=== PATIENT | male | born 1945 | race African-American/Black ===

== ENCOUNTER 2017-04-29 18:36 | Inpatient (IN) | payer BC, OTHER ==
[~2017-04-29] VITALS: Ht 182.9 cm; Wt 102.7 kg
[~2017-04-29 18:36] MED LIST: ARYTHROMYCIN; ASPI81CH43; ATEN-60; ATOR10TA; BENA10TA9; GABA-494; GLIM1TAB2; NITR0.4S31; PRO125RS; SITA50TA28; VENL75TA
[2017-04-29 19:40] LABS: Albumin 3.3 g/dL (3.4-5.0); BUN/Creatinine Ratio 20.6; Calcium 8.6 mg/dL (8.5-10.1); Potassium 4.8 mmol/L (3.5-5.1)
[2017-04-29 19:41] LABS: Basophils # (auto) 0 uL; Basophils % (auto) 0.7 % (0.0-2.0); Eosinophils # (auto) 0.1 uL; Eosinophils % (auto) 1.4 % (0.0-7.0); Hematocrit 45.9 % (41.0-53.0); Hemoglobin 15.1 g/dL (13.5-17.5); Lymphocytes # (auto) 1.7 uL; Lymphocytes % (auto) 27.5 % (10.0-50.0); Mean Corpuscular Hemoglobin 29.5 pg (28.0-32.0); Mean Corpuscular Volume 89.4 fL (80.0-100.0); Mean Platelet Volume 10.7 fL (6.9-10.8); Monocytes # (auto) 0.6 uL; Monocytes % (auto) 10.2 % (0.0-12.0); Neutrophils # (auto) 3.7 uL; Neutrophils % (auto) 60.2 % (37.0-80.0); Nucleated Red Blood Cells % 0.2 %; Red Cell Distribution Width 15.7 % (11.8-14.3); White Blood Cell 6.1 10^3/uL (4.4-10.8)
[2017-04-29 19:42] LABS: Lactic Acid w/Reflex 2.5 mmol/L (0.4-2.0)
[2017-04-29 19:43] LABS: Bilirubin, Total 0.3 mg/dL (0.2-1.0); Total Protein 7.1 g/dL (6.4-8.2)
[2017-04-29 19:48] LABS: B-Type Natriuretic Peptide 29.51 pg/mL (0-100)
[2017-04-29 19:54] LABS: Partial Thromboplastin Time 54.8 sec (22.64-33.71); Prothrombin Time 46.8 sec (9.37-12.3)
[2017-04-29] MEDS ORDERED: ONDANSETRON HCL 4 MG/2 ML VIAL IV ONE (20:15)
[2017-04-29] MEDS ORDERED: MORPHINE SULF INJ 2 MG/ML SYRINGE 1ML IV ONE (20:15)
[2017-04-29 20:17] LABS: REFLEX LACTIC ACID YES OR NO YES
[2017-04-29 20:29] LABS: Large Platelets FEW; Stomatocytes Few
[2017-04-29 20:30] LABS: Platelet Estimate Decrea
[2017-04-29 20:39] LABS: INR 4.23 (0.9-1.15)
[2017-04-29] MEDS ORDERED: IPRATROPIUM BROM 0.5 MG/2.5ML INH SOL NEB ONE (20:45)
[2017-04-29] MEDS ORDERED: ALBUTEROL SULF 2.5 MG/0.5ML(0.5%) NEB SOLN NEB ONE (20:45)
[2017-04-29 21:17] LABS: Temperature: 21.4 C (20.0-25.0)
[2017-04-29 21:20] LABS: Platelet Count (auto) 138 10^3/uL (140-450)
[2017-04-29] MEDS ORDERED: ACETAMINOPHEN 325 MG TAB PO ONE ×2 (23:26→23:30)
[2017-04-30] MEDS ORDERED: NITROGLYCERIN 0.4 MG SL TAB SL PRN (02:00)
[2017-04-30] MEDS ORDERED: MORPHINE SULF INJ 2 MG/ML SYRINGE 1ML IV PRN (02:00)
[2017-04-30] MEDS ORDERED: ACETAMINOPHEN 500 MG TAB PO PRN (04:15)
[2017-04-30] MEDS ORDERED: DEXTROSE (50%) 50ML SYRG IV PRN (04:15)
[2017-04-30] MEDS ORDERED: ONDANSETRON HCL 4 MG/2 ML VIAL IV PRN (04:15)
[2017-04-30] MEDS: ACCU-CHEK COMFORT CURVE STRIP VI SCH ×4 (06:38→22:00)
[2017-04-30] MEDS: InsuLIN REG 1unit/0.01ml Soln (100units/ml) SC SCH ×4 (06:56→22:00)
[2017-04-30 07:40] LABS: Basophils # (auto) 0.1 uL; Basophils % (auto) 0.8 % (0.0-2.0); Eosinophils # (auto) 0.1 uL; Eosinophils % (auto) 1.5 % (0.0-7.0); Hematocrit 42.4 % (41.0-53.0); Lymphocytes # (auto) 1.9 uL; Lymphocytes % (auto) 26.6 % (10.0-50.0); Mean Corpuscular Hemoglobin 29.4 pg (28.0-32.0); Mean Corpuscular Volume 89.2 fL (80.0-100.0); Mean Platelet Volume 11.3 fL (6.9-10.8); Monocytes # (auto) 0.7 uL; Neutrophils # (auto) 4.3 uL; Neutrophils % (auto) 61.1 % (37.0-80.0); Nucleated Red Blood Cells % 0.3 %; Platelet Count (auto) 139 10^3/uL (140-450); Red Cell Distribution Width 15.7 % (11.8-14.3); White Blood Cell 7.1 10^3/uL (4.4-10.8)
[2017-04-30 07:57] LABS: BUN/Creatinine Ratio 23.9; Calcium 8.2 mg/dL (8.5-10.1)
[2017-04-30 08:04] LABS: Potassium 5.7 mmol/L (3.5-5.1)
[2017-04-30] MEDS ORDERED: ALBUTEROL SULF 2.5 MG/0.5ML(0.5%) NEB SOLN NEB STA (08:16)
[2017-04-30] MEDS ORDERED: CALCIUM GLUC 4.65meq/50ml D5AE 50 ML IV ONE (08:30)
[2017-04-30] MEDS ORDERED: InsuLIN REG 1unit/0.01ml Soln (100units/ml) IV ONE (08:30)
[2017-04-30] MEDS ORDERED: SODIUM BICARBONATE 8.4% INJ 50ML SYRINGE IV ONE (08:30)
[2017-04-30] MEDS ORDERED: PIPERACILLIN-TAZOB 3.375GM 50 ML IV ONE (08:30)
[2017-04-30] MEDS ORDERED: SODIUM POLYSTYRENE SULF 15GM/60ML SUSP PO ONE (08:30)
[2017-04-30] MEDS ORDERED: DEXTROSE (50%) 50ML SYRG IV ONE (08:30)
[2017-04-30] MEDS ORDERED: VANCOMYCIN 1GM/250ML 250 ML IV ONE (08:45)
[2017-04-30] MEDS ORDERED: ETOMIDATE (2MG/ML) 20ML VIAL IV ONE ×2 (09:38→10:15)
[2017-04-30] MEDS ORDERED: MIDAZOLAM DRIP 100 mg/100mL NS 100 ML IV ONE (09:48)
[2017-04-30] MEDS: MIDAZOLAM DRIP 100 mg/100mL NS 100 ML IV SCH ×2 (09:56→20:16)
[2017-04-30] MEDS: VENLAFAXINE HCL 37.5MG TABLET PO SCH ×2 (10:00→22:00)
[2017-04-30] MEDS ORDERED: diphenhdrAMINE HCL 50 MG/1 ML VL ONE (10:02)
[2017-04-30] MEDS ORDERED: PROPOFOL 100 ML IV ONE (10:02)
[2017-04-30] MEDS: PROPOFOL 100 ML IV SCH (10:15)
[2017-04-30] MEDS ORDERED: PROPOFOL 10 MG/ML 20 ML IV SCH (10:15)
[2017-04-30] MEDS ORDERED: diphenhdrAMINE HCL 50 MG/1 ML VL IV ONE (10:15)
[2017-04-30 11:41] LABS: Base Excess 1.9 mmol/L (-2.0-2.0); Blood 02Sat 96.9 % (96-100); Blood COHb 0.1 % (0.5-1.5); Blood MetHb 0.3 % (0.0-1.5); HCO3 28.9 mmol/L (22-26.0); HHb 3.1 % (0.0-5.0); MODE VENT - A/C; O2Hb 96.5 % (94.0-97.0); PCO2 54.4 mmHg (35.0-45.0); PCO2(T) 54.4 mmHg (35.0-45.0); PIP 26; Room 1011-ERT; Sample Type Arterial; pH 7.343 (7.350-7.450)
[2017-04-30] MEDS ORDERED: WARF5TAB71 PO (15:11)
[2017-04-30] MEDS ORDERED: TEMA30CA PO (15:16)
[2017-04-30] MEDS ORDERED: CARV12.544 PO (15:16)
[2017-04-30] MEDS ORDERED: AMIO200T33 PO (15:16)
[2017-04-30] MEDS ORDERED: GABA-339 PO (15:16)
[2017-04-30] MEDS ORDERED: FURO40TA4 PO (15:16)
[2017-04-30] MEDS ORDERED: BEN10T PO (15:16)
[2017-04-30] MEDS ORDERED: VENL37.588 PO (15:16)
[2017-04-30] MEDS ORDERED: PANTOPRAZOLE 40 MG/10 ML VIAL IV ONE (17:45)
[2017-04-30] MEDS ORDERED: LEVOFLOXACIN 500MG 100 ML IV ONE (17:45)
[2017-04-30 19:02] VITALS: BP 114/72
[2017-04-30 20:12] VITALS: BP 110/70
[2017-04-30] MEDS: PIPERACILLIN-TAZO 4.5GM 50 ML IV SCH (22:00)
[2017-04-30] MEDS: ATORVASTATIN 20 MG TAB PO SCH (22:00)
[2017-04-30 22:37] VITALS: BP 128/64
[2017-04-30 23:13] VITALS: BP 128/64
[2017-05-01] VITALS (13 sets, daily range): BP systolic 89–133; BP diastolic 58–76
[2017-05-01] MEDS: PIPERACILLIN-TAZO 4.5GM 50 ML IV SCH ×3 (06:08→22:13)
[2017-05-01 06:28] LABS: Basophils # (auto) 0 uL; Basophils % (auto) 0.2 % (0.0-2.0); Eosinophils # (auto) 0 uL; Eosinophils % (auto) 0.1 % (0.0-7.0); Hematocrit 42.4 % (41.0-53.0); Hemoglobin 14.2 g/dL (13.5-17.5); Lymphocytes # (auto) 0.8 uL; Lymphocytes % (auto) 8.6 % (10.0-50.0); Mean Corpuscular Hemoglobin 29.6 pg (28.0-32.0); Mean Corpuscular Hgb Conc. 33.5 g/dL (32.0-36.0); Mean Corpuscular Volume 88.5 fL (80.0-100.0); Mean Platelet Volume 11.4 fL (6.9-10.8); Monocytes # (auto) 0.9 uL; Monocytes % (auto) 10.1 % (0.0-12.0); Neutrophils # (auto) 7.5 uL; Nucleated Red Blood Cells % 0.2 %; Platelet Count (auto) 116 10^3/uL (140-450); White Blood Cell 9.2 10^3/uL (4.4-10.8)
[2017-05-01 06:47] LABS: Albumin 2.9 g/dL (3.4-5.0); Calcium 8.3 mg/dL (8.5-10.1); Potassium 5.3 mmol/L (3.5-5.1)
[2017-05-01 06:49] LABS: BUN/Creatinine Ratio 21.4
[2017-05-01] MEDS: InsuLIN REG 1unit/0.01ml Soln (100units/ml) SC SCH ×4 (06:49→22:31)
[2017-05-01] MEDS: ACCU-CHEK COMFORT CURVE STRIP VI SCH ×4 (06:49→22:14)
[2017-05-01 06:52] LABS: Bilirubin, Total 0.7 mg/dL (0.2-1.0); Total Protein 6.9 g/dL (6.4-8.2)
[2017-05-01 07:23] LABS: Allen Test Modified; Base Excess 0.3 mmol/L (-2.0-2.0); Blood 02Sat 95.1 % (96-100); Blood COHb 0.1 % (0.5-1.5); Blood MetHb 0.3 % (0.0-1.5); HCO3 25.3 mmol/L (22-26.0); HHb 4.9 % (0.0-5.0); MODE VENT - A/C; O2Hb 94.7 % (94.0-97.0); PCO2 42.1 mmHg (35.0-45.0); PCO2(T) 42.1 mmHg (35.0-45.0); Room 1011-ERT; Sample Type Arterial; pH 7.397 (7.350-7.450)
[2017-05-01] MEDS: LEVOFLOXACIN 500MG 100 ML IV SCH (09:41)
[2017-05-01] MEDS: VENLAFAXINE HCL 37.5MG TABLET PO SCH ×2 (09:41→21:59)
[2017-05-01] MEDS ORDERED: PANTOPRAZOLE 40 MG/10 ML VIAL IV SCH (10:00)
[2017-05-01] MEDS: SOD CHL 0.45% 1,000 ML IV SCH ×2 (12:22→22:13)
[2017-05-01 13:52] LABS: Urine Bilirubin Negative (Negative); Urine Blood 3+ /uL (Negative); Urine Color PINK (Yellow); Urine Glucose 2+ mg/dL (Normal); Urine Ketone Negative (Negative); Urine Mucus FEW (None Seen); Urine Nitrite Negative (Negative); Urine RBC 115 /hpf (0 - 3); Urine Squamous Epithelial Cell FEW /hpf (<5); Urine Urobilinogen Normal (Negative)
[2017-05-01] MEDS: PROPOFOL 100 ML IV SCH (15:00)
[2017-05-01] MEDS: MIDAZOLAM DRIP 100 mg/100mL NS 100 ML IV SCH (15:00)
[2017-05-01] MEDS: ATORVASTATIN 20 MG TAB PO SCH (22:00)
[2017-05-01 22:35] LABS: INR 3.46 (0.9-1.15); Prothrombin Time 38.2 sec (9.37-12.3)
[2017-05-02] VITALS (11 sets, daily range): BP systolic 113–143; BP diastolic 64–82
[2017-05-02 04:57] LABS: Albumin 2.5 g/dL (3.4-5.0); BUN/Creatinine Ratio 24.3; Bilirubin, Total 0.6 mg/dL (0.2-1.0); Calcium 7.9 mg/dL (8.5-10.1); Potassium 4.4 mmol/L (3.5-5.1); Total Protein 6.2 g/dL (6.4-8.2)
[2017-05-02 06:08] LABS: Allen Test Modified; Base Excess 0.7 mmol/L (-2.0-2.0); Blood 02Sat 91.8 % (96-100); Blood COHb 0.2 % (0.5-1.5); Blood MetHb 0.3 % (0.0-1.5); HCO3 24.1 mmol/L (22-26.0); HHb 8.2 % (0.0-5.0); MODE VENT - A/C; O2Hb 91.3 % (94.0-97.0); PO2 62.1 mmHg (80.0-100.0); PO2(T) 62.1 mmHg (80.0-100.0); Room 1011-ERT; Sample Type Arterial; pH 7.456 (7.350-7.450)
[2017-05-02] MEDS: PIPERACILLIN-TAZO 4.5GM 50 ML IV SCH ×3 (06:18→22:04)
[2017-05-02] MEDS: ACCU-CHEK COMFORT CURVE STRIP VI SCH ×4 (06:18→22:12)
[2017-05-02] MEDS: InsuLIN REG 1unit/0.01ml Soln (100units/ml) SC SCH ×4 (06:46→22:22)
[2017-05-02] MEDS: SOD CHL 0.45% 1,000 ML IV SCH ×2 (07:51→18:25)
[2017-05-02] MEDS: VENLAFAXINE HCL 37.5MG TABLET PO SCH ×2 (10:00→22:00)
[2017-05-02] MEDS: LEVOFLOXACIN 500MG 100 ML IV SCH (10:23)
[2017-05-02] MEDS: MIDAZOLAM DRIP 100 mg/100mL NS 100 ML IV SCH (11:23)
[2017-05-02] MEDS: FAMOTIDINE (10MG/ML) 2ML VL IV SCH (11:27)
[2017-05-02] MEDS: PROPOFOL 100 ML IV SCH (11:30)
[2017-05-02] MEDS: MIDAZOLAM DRIP 50 mg/50mL 50 ML IV SCH (13:45)
[2017-05-02] MEDS ORDERED: CLOP75TA28 PO (14:11)
[2017-05-02] MEDS ORDERED: INSU1.2I SC (14:11)
[2017-05-02] MEDS ORDERED: INSLISPI SC (14:11)
[2017-05-02] MEDS ORDERED: ALPR0.25 PO (14:11)
[2017-05-02] MEDS: ATORVASTATIN 20 MG TAB PO SCH (22:00)
[2017-05-03] VITALS (12 sets, daily range): BP systolic 116–172; BP diastolic 65–119
[2017-05-03] MEDS: SOD CHL 0.45% 1,000 ML IV SCH ×3 (04:00→23:47)
[2017-05-03 07:21] LABS: Albumin 2.3 g/dL (3.4-5.0); BUN/Creatinine Ratio 27.4; Bilirubin, Total 0.6 mg/dL (0.2-1.0); Calcium 7.8 mg/dL (8.5-10.1); Total Protein 6.3 g/dL (6.4-8.2)
[2017-05-03 07:36] LABS: Allen Test Modified; Base Excess 1.1 mmol/L (-2.0-2.0); Blood 02Sat 91.4 % (96-100); Blood COHb 0.1 % (0.5-1.5); Blood MetHb 0.2 % (0.0-1.5); HCO3 24.7 mmol/L (22-26.0); HHb 8.6 % (0.0-5.0); MODE VENT - A/C; O2Hb 91.1 % (94.0-97.0); PCO2 36.2 mmHg (35.0-45.0); PCO2(T) 36.2 mmHg (35.0-45.0); PO2 60.6 mmHg (80.0-100.0); PO2(T) 60.6 mmHg (80.0-100.0); Room 1011-ERT; Sample Type Arterial; pH 7.452 (7.350-7.450)
[2017-05-03] MEDS: ACCU-CHEK COMFORT CURVE STRIP VI SCH ×4 (07:46→22:07)
[2017-05-03] MEDS: InsuLIN REG 1unit/0.01ml Soln (100units/ml) SC SCH ×4 (07:52→22:07)
[2017-05-03] MEDS: PIPERACILLIN-TAZO 4.5GM 50 ML IV SCH ×3 (08:08→22:07)
[2017-05-03] MEDS: FAMOTIDINE (10MG/ML) 2ML VL IV SCH (10:00)
[2017-05-03] MEDS: PROPOFOL 100 ML IV SCH ×2 (11:09→13:18)
[2017-05-03] MEDS: VENLAFAXINE HCL 37.5MG TABLET PO SCH ×2 (11:10→22:07)
[2017-05-03] MEDS: LEVOFLOXACIN 500MG 100 ML IV SCH (11:25)
[2017-05-03] MEDS: MIDAZOLAM DRIP 50 mg/50mL 50 ML IV SCH (12:08)
[2017-05-03] MEDS: ATORVASTATIN 20 MG TAB PO SCH (22:07)
[2017-05-04] VITALS (88 sets, daily range): BP systolic 105–178; BP diastolic 55–95
[2017-05-04] MEDS: PIPERACILLIN-TAZO 4.5GM 50 ML IV SCH ×3 (06:00→21:52)
[2017-05-04] MEDS: ACCU-CHEK COMFORT CURVE STRIP VI SCH ×4 (07:00→22:26)
[2017-05-04] MEDS: InsuLIN REG 1unit/0.01ml Soln (100units/ml) SC SCH ×4 (07:01→22:27)
[2017-05-04 07:21] LABS: Base Excess -3.1 mmol/L (-2.0-2.0); Blood 02Sat 92.9 % (96-100); Blood COHb 0.5 % (0.5-1.5); Blood MetHb 0.3 % (0.0-1.5); HCO3 20.2 mmol/L (22-26.0); MODE VENT - A/C; O2Hb 92.2 % (94.0-97.0); PCO2 31.5 mmHg (35.0-45.0); PCO2(T) 31.5 mmHg (35.0-45.0); PO2 66.3 mmHg (80.0-100.0); PO2(T) 66.3 mmHg (80.0-100.0); Sample Type Arterial; pH 7.425 (7.350-7.450)
[2017-05-04] MEDS: LEVOFLOXACIN 500MG 100 ML IV SCH (10:53)
[2017-05-04] MEDS: FAMOTIDINE (10MG/ML) 2ML VL IV SCH (10:54)
[2017-05-04] MEDS: PROPOFOL 100 ML IV SCH ×2 (10:54→16:44)
[2017-05-04] MEDS: SOD CHL 0.45% 1,000 ML IV SCH ×2 (10:55→20:00)
[2017-05-04] MEDS: VENLAFAXINE HCL 37.5MG TABLET PO SCH ×2 (11:11→22:26)
[2017-05-04] MEDS: MIDAZOLAM DRIP 50 mg/50mL 50 ML IV SCH (13:45)
[2017-05-04] MEDS ORDERED: FUROSEMIDE 20 MG/2 ML VIAL IV ONE (15:30)
[2017-05-04] MEDS: ATORVASTATIN 20 MG TAB PO SCH (22:29)
[2017-05-05] VITALS (86 sets, daily range): BP systolic 97–175; BP diastolic 50–114
[2017-05-05 05:14] LABS: Basophils # (auto) 0 uL; Basophils % (auto) 0.4 % (0.0-2.0); Eosinophils # (auto) 0.1 uL; Eosinophils % (auto) 1.2 % (0.0-7.0); Hematocrit 38.6 % (41.0-53.0); Hemoglobin 12.8 g/dL (13.5-17.5); Lymphocytes # (auto) 1.1 uL; Lymphocytes % (auto) 11.9 % (10.0-50.0); Mean Corpuscular Hemoglobin 29.4 pg (28.0-32.0); Mean Corpuscular Hgb Conc. 33.2 g/dL (32.0-36.0); Mean Corpuscular Volume 88.5 fL (80.0-100.0); Mean Platelet Volume 11.3 fL (6.9-10.8); Monocytes # (auto) 1.3 uL; Monocytes % (auto) 13.5 % (0.0-12.0); Platelet Count (auto) 97 10^3/uL (140-450); Red Cell Distribution Width 15.5 % (11.8-14.3); White Blood Cell 9.5 10^3/uL (4.4-10.8)
[2017-05-05 05:34] LABS: Bilirubin, Total 0.6 mg/dL (0.2-1.0); Calcium 8.2 mg/dL (8.5-10.1); Potassium 4.1 mmol/L (3.5-5.1); Total Protein 6.7 g/dL (6.4-8.2)
[2017-05-05 05:47] LABS: Giant Platelets Few; Platelet Estimate Decreased; RBC Morphology Normal
[2017-05-05] MEDS: PIPERACILLIN-TAZO 4.5GM 50 ML IV SCH ×3 (06:26→21:49)
[2017-05-05] MEDS: SOD CHL 0.45% 1,000 ML IV SCH ×3 (06:29→23:12)
[2017-05-05] MEDS: InsuLIN REG 1unit/0.01ml Soln (100units/ml) SC SCH ×4 (06:45→22:00)
[2017-05-05] MEDS: ACCU-CHEK COMFORT CURVE STRIP VI SCH ×4 (06:45→22:00)
[2017-05-05] MEDS ORDERED: FUROSEMIDE 20 MG/2 ML VIAL IV ONE (08:30)
[2017-05-05 08:52] LABS: Allen Test Modified; Base Excess -0.6 mmol/L (-2.0-2.0); Blood COHb 0.9 % (0.5-1.5); Blood MetHb 0.3 % (0.0-1.5); HCO3 22.9 mmol/L (22-26.0); HHb 6.9 % (0.0-5.0); MODE VENT - A/C; O2Hb 91.9 % (94.0-97.0); PCO2 34.5 mmHg (35.0-45.0); PCO2(T) 34.5 mmHg (35.0-45.0); PO2 66.1 mmHg (80.0-100.0); PO2(T) 66.1 mmHg (80.0-100.0); Sample Type Arterial; pH 7.439 (7.350-7.450)
[2017-05-05] MEDS: LEVOFLOXACIN 500MG 100 ML IV SCH (09:45)
[2017-05-05] MEDS: VENLAFAXINE HCL 37.5MG TABLET PO SCH ×2 (09:45→21:49)
[2017-05-05] MEDS: FAMOTIDINE (10MG/ML) 2ML VL IV SCH (09:45)
[2017-05-05] MEDS ORDERED: ALBUTEROL SULF 2.5 MG/0.5ML(0.5%) NEB SOLN NEB PRN (10:00)
[2017-05-05] MEDS: ALBUTEROL SULF 2.5 MG/0.5ML(0.5%) NEB SOLN NEB SCH ×3 (10:05→18:56)
[2017-05-05 11:30] LABS: Allen Test Modified; Base Excess 0.5 mmol/L (-2.0-2.0); Blood 02Sat 91.8 % (96-100); Blood COHb 1.1 % (0.5-1.5); Blood MetHb 0.3 % (0.0-1.5); CPAP / PEEP 0; HCO3 24.3 mmol/L (22-26.0); HHb 8.1 % (0.0-5.0); MODE VENT - CPAP; O2Hb 90.5 % (94.0-97.0); PCO2 36.5 mmHg (35.0-45.0); PCO2(T) 36.5 mmHg (35.0-45.0); PO2 62.2 mmHg (80.0-100.0); PO2(T) 62.2 mmHg (80.0-100.0); Pressure Support 8; Sample Type Arterial; Spont Vt 650; pH 7.441 (7.350-7.450)
[2017-05-05] MEDS: MIDAZOLAM DRIP 50 mg/50mL 50 ML IV SCH (13:45)
[2017-05-05] MEDS ORDERED: FUROSEMIDE 40 MG/4 ML VIAL IV ONE (16:00)
[2017-05-05] MEDS: ACYCLOVIR 400 MG TAB PO SCH ×2 (16:41→21:50)
[2017-05-05] MEDS ORDERED: PREG150C PO (17:03)
[2017-05-05] MEDS: ATORVASTATIN 20 MG TAB PO SCH (21:49)
[2017-05-05] MEDS: PREGABALIN CAPSULE 75 MG CAP PO SCH (21:49)
[2017-05-05] MEDS: HYDROcodone-ACET 5/325MG TAB PO PRN (21:50)
[2017-05-06] VITALS (29 sets, daily range): BP systolic 87–156; BP diastolic 32–95
[2017-05-06] MEDS: HYDROcodone-ACET 5/325MG TAB PO PRN (04:27)
[2017-05-06] MEDS: ALBUTEROL SULF 2.5 MG/0.5ML(0.5%) NEB SOLN NEB SCH ×4 (05:55→19:33)
[2017-05-06] MEDS: PIPERACILLIN-TAZO 4.5GM 50 ML IV SCH ×3 (06:04→22:49)
[2017-05-06] MEDS: ACYCLOVIR 400 MG TAB PO SCH ×3 (06:05→21:47)
[2017-05-06] MEDS: PREGABALIN CAPSULE 75 MG CAP PO SCH ×3 (06:05→21:47)
[2017-05-06] MEDS: InsuLIN REG 1unit/0.01ml Soln (100units/ml) SC SCH ×4 (06:32→21:48)
[2017-05-06] MEDS: ACCU-CHEK COMFORT CURVE STRIP VI SCH ×4 (06:38→21:48)
[2017-05-06 09:14] LABS: Basophils # (auto) 0 uL; Basophils % (auto) 0.3 % (0.0-2.0); Eosinophils # (auto) 0.2 uL; Eosinophils % (auto) 1.7 % (0.0-7.0); Hematocrit 39.8 % (41.0-53.0); Hemoglobin 13.3 g/dL (13.5-17.5); Lymphocytes # (auto) 0.8 uL; Mean Corpuscular Hemoglobin 29.4 pg (28.0-32.0); Mean Corpuscular Hgb Conc. 33.4 g/dL (32.0-36.0); Mean Corpuscular Volume 88.1 fL (80.0-100.0); Mean Platelet Volume 9.9 fL (6.9-10.8); Monocytes # (auto) 1.5 uL; Monocytes % (auto) 15.4 % (0.0-12.0); Neutrophils # (auto) 7.3 uL; Neutrophils % (auto) 74.6 % (37.0-80.0); Platelet Count (auto) 100 10^3/uL (140-450); Red Cell Distribution Width 15.7 % (11.8-14.3); White Blood Cell 9.8 10^3/uL (4.4-10.8)
[2017-05-06 09:28] LABS: INR 1.18 (0.9-1.15); Partial Thromboplastin Time 28.7 sec (22.64-33.71); Prothrombin Time 12.9 sec (9.37-12.3)
[2017-05-06 09:37] LABS: BUN/Creatinine Ratio 23.2; Calcium 8.6 mg/dL (8.5-10.1); Potassium 3.7 mmol/L (3.5-5.1)
[2017-05-06] MEDS: PROPOFOL 100 ML IV SCH (10:28)
[2017-05-06] MEDS: FAMOTIDINE (10MG/ML) 2ML VL IV SCH (10:31)
[2017-05-06] MEDS: VENLAFAXINE HCL 37.5MG TABLET PO SCH ×2 (10:31→21:46)
[2017-05-06] MEDS: LEVOFLOXACIN 500MG 100 ML IV SCH (10:32)
[2017-05-06] MEDS: MIDAZOLAM DRIP 50 mg/50mL 50 ML IV SCH (13:07)
[2017-05-06] MEDS: ATORVASTATIN 20 MG TAB PO SCH (21:47)
[2017-05-07 05:00] VITALS: BP 146/63
[2017-05-07] MEDS: PREGABALIN CAPSULE 75 MG CAP PO SCH ×3 (05:21→21:31)
[2017-05-07] MEDS: ACYCLOVIR 400 MG TAB PO SCH ×3 (05:21→21:31)
[2017-05-07] MEDS: PIPERACILLIN-TAZO 4.5GM 50 ML IV SCH ×3 (05:21→21:33)
[2017-05-07] MEDS: ACCU-CHEK COMFORT CURVE STRIP VI SCH ×4 (06:22→21:32)
[2017-05-07] MEDS: InsuLIN REG 1unit/0.01ml Soln (100units/ml) SC SCH ×4 (06:22→21:32)
[2017-05-07] MEDS: ALBUTEROL SULF 2.5 MG/0.5ML(0.5%) NEB SOLN NEB SCH ×4 (06:53→19:25)
[2017-05-07 08:34] VITALS: BP 136/64
[2017-05-07] MEDS: LEVOFLOXACIN 500MG 100 ML IV SCH (10:05)
[2017-05-07] MEDS: FAMOTIDINE (10MG/ML) 2ML VL IV SCH (10:11)
[2017-05-07] MEDS: VENLAFAXINE HCL 37.5MG TABLET PO SCH ×2 (10:12→21:31)
[2017-05-07 11:14] VITALS: BP 151/73
[2017-05-07 16:39] VITALS: BP 132/77
[2017-05-07] MEDS: ATORVASTATIN 20 MG TAB PO SCH (21:31)
[2017-05-07 22:00] VITALS: BP 136/71
[2017-05-08 04:44] VITALS: BP 94/64
[2017-05-08] MEDS: PIPERACILLIN-TAZO 4.5GM 50 ML IV SCH (05:42)
[2017-05-08] MEDS: PREGABALIN CAPSULE 75 MG CAP PO SCH (05:42)
[2017-05-08] MEDS: ACYCLOVIR 400 MG TAB PO SCH (05:43)
[2017-05-08] MEDS: InsuLIN REG 1unit/0.01ml Soln (100units/ml) SC SCH ×2 (06:23→11:56)
[2017-05-08] MEDS: ACCU-CHEK COMFORT CURVE STRIP VI SCH ×2 (06:24→11:56)
[2017-05-08] MEDS: ALBUTEROL SULF 2.5 MG/0.5ML(0.5%) NEB SOLN NEB SCH ×2 (06:52→10:45)
[2017-05-08 09:00] VITALS: BP 124/65
[2017-05-08] MEDS: LEVOFLOXACIN 500MG 100 ML IV SCH (10:00)
[2017-05-08] MEDS: FAMOTIDINE (10MG/ML) 2ML VL IV SCH ×2 (10:00→11:22)
[2017-05-08] MEDS: VENLAFAXINE HCL 37.5MG TABLET PO SCH (11:23)
[2017-05-08 11:47] VITALS: BP 131/73
== END 2017-05-08 14:16 | disposition home or self-care (01) | DRG 870 ==
LOC: ER 18:36 → EDBD 18:36 → TELE 18:37 → ICU WEST 05-04 04:20 → TELE-WESTW 05-06 14:27
PROVIDERS: ADMIT Nurse Practitioner Family; ATTEND Internal Medicine
PROC: 5A1955Z Respiratory Ventilation, Greater than 96 Consecutive Hours (ICD-10-PCS; principal; 2017-04-30)
PROC: 0BH17EZ Insertion of Endotracheal Airway into Trachea, Via Natural or Artificial Opening (ICD-10-PCS; 2017-04-30)
DX: A41.9 Sepsis, unspecified organism (principal); J96.01 Acute respiratory failure with hypoxia; N17.0 Acute kidney failure with tubular necrosis; J18.9 Pneumonia, unspecified organism; G92 Toxic encephalopathy; J44.0 Chronic obstructive pulmonary disease with (acute) lower respiratory infection; D68.9 Coagulation defect, unspecified; E11.22 Type 2 diabetes mellitus with diabetic chronic kidney disease; E11.42 Type 2 diabetes mellitus with diabetic polyneuropathy; I13.0 Hypertensive heart and chronic kidney disease with heart failure and stage 1 through stage 4 chronic kidney disease, or unspecified chronic kidney disease; J98.11 Atelectasis; E11.65 Type 2 diabetes mellitus with hyperglycemia; E87.5 Hyperkalemia; I50.9 Heart failure, unspecified; T45.515A Adverse effect of anticoagulants, initial encounter; N18.3 Chronic kidney disease, stage 3 (moderate); R55 Syncope and collapse; F03.90 Unspecified dementia, unspecified severity, without behavioral disturbance, psychotic disturbance, mood disturbance, and anxiety; R26.9 Unspecified abnormalities of gait and mobility; M19.90 Unspecified osteoarthritis, unspecified site; E78.00 Pure hypercholesterolemia, unspecified; I25.10 Atherosclerotic heart disease of native coronary artery without angina pectoris; E78.5 Hyperlipidemia, unspecified; E66.01 Morbid (severe) obesity due to excess calories; Z79.01 Long term (current) use of anticoagulants; Z86.73 Personal history of transient ischemic attack (TIA), and cerebral infarction without residual deficits; I25.2 Old myocardial infarction; Z79.82 Long term (current) use of aspirin; Z79.84 Long term (current) use of oral hypoglycemic drugs; Z79.899 Other long term (current) drug therapy; Z82.3 Family history of stroke; Z82.49 Family history of ischemic heart disease and other diseases of the circulatory system; Z83.3 Family history of diabetes mellitus; Z85.46 Personal history of malignant neoplasm of prostate; Z90.79 Acquired absence of other genital organ(s); Y92.89 Other specified places as the place of occurrence of the external cause; Z68.30 Body mass index [BMI] 30.0-30.9, adult
CPT/HCPCS: 31500; 36415; 36600; 51702; 70450; 71010; 72125; 73700; 76775; 80048; 80053; 80307; 81001; 82140; 82570; 82607; 82805; 82962; 83605; 83735; 83880; 84100; 84132; 84156; 84207; 84300; 84443; 84484; 85025; 85379; 85610; 85730; 86592; 87070; 87081; 87205; 93005; 93306; 93886; 93971; 94002; 94003; 94640; 95819; 96365; 96367; 96375; C9113; J0610; J1815; J1956; J2250; J2405; J2543; J2704; J3490

== ENCOUNTER 2017-07-01 05:21 | Emergency (ER) | payer OTHER ==
[~2017-07-01] VITALS: Ht 188 cm; Wt 108.9 kg
[~2017-07-01 05:21] MED LIST changes: +ALPR0.25 PO; +AMIO200T33 PO; -ARYTHROMYCIN; -ASPI81CH43; -ATEN-60; +BEN10T PO; -BENA10TA9; +CARV12.544 PO; +CLOP75TA28 PO; +GABA-339 PO; -GABA-494; -GLIM1TAB2; +INSLISPI SC; +INSU1.2I SC; -NITR0.4S31; +PREG150C PO; -PRO125RS; -SITA50TA28; +TEMA30CA PO; +VENL37.588 PO; -VENL75TA; +WARF5TAB71 PO
[2017-07-01 06:57] LABS: Basophils # (auto) 0.1 uL; Basophils % (auto) 1.1 % (0.0-2.0); Eosinophils # (auto) 0.1 uL; Eosinophils % (auto) 2.5 % (0.0-7.0); Hematocrit 42.1 % (41.0-53.0); Hemoglobin 14.2 g/dL (13.5-17.5); Lymphocytes # (auto) 1.6 uL; Lymphocytes % (auto) 28.2 % (10.0-50.0); Mean Corpuscular Hemoglobin 29.4 pg (28.0-32.0); Mean Corpuscular Hgb Conc. 33.7 g/dL (32.0-36.0); Mean Corpuscular Volume 87.1 fL (80.0-100.0); Monocytes # (auto) 0.6 uL; Monocytes % (auto) 10.4 % (0.0-12.0); Neutrophils # (auto) 3.4 uL; Neutrophils % (auto) 57.8 % (37.0-80.0); Nucleated Red Blood Cells % 0.1 %; Platelet Count (auto) 159 10^3/uL (140-450); Red Blood Cells 4.84 10^6/uL (4.5-5.90); Red Cell Distribution Width 15.8 % (11.8-14.3); White Blood Cell 5.8 10^3/uL (4.4-10.8)
[2017-07-01 07:19] LABS: BUN/Creatinine Ratio 17.5; Bilirubin, Total 0.3 mg/dL (0.2-1.0); Calcium 8.3 mg/dL (8.5-10.1); Potassium 4.6 mmol/L (3.5-5.1); Total Protein 7.3 g/dL (6.4-8.2)
[2017-07-01] MEDS ORDERED: methylPREDNISolone SOD SUCC 125 MG/2 ML VL IV ONE (07:30)
[2017-07-01] MEDS ORDERED: ALBUTEROL SULF 2.5 MG/0.5ML(0.5%) NEB SOLN NEB ONE (07:30)
[2017-07-01] MEDS ORDERED: IPRATROPIUM BROM 0.5 MG/2.5ML INH SOL NEB ONE (07:30)
[2017-07-01] MEDS ORDERED: FUROSEMIDE 40 MG/4 ML VIAL IV ONE (08:00)
[2017-07-01 08:45] VITALS: BP 144/79
== END 2017-07-01 09:33 | disposition left against medical advice (07) ==
LOC: EDBD 05:21 → ER 05:29
DX: J44.9 Chronic obstructive pulmonary disease, unspecified (principal); I50.9 Heart failure, unspecified; R06.03 Acute respiratory distress; I11.0 Hypertensive heart disease with heart failure; F03.90 Unspecified dementia, unspecified severity, without behavioral disturbance, psychotic disturbance, mood disturbance, and anxiety; I48.91 Unspecified atrial fibrillation; E11.9 Type 2 diabetes mellitus without complications; E78.5 Hyperlipidemia, unspecified; I25.2 Old myocardial infarction; Z86.73 Personal history of transient ischemic attack (TIA), and cerebral infarction without residual deficits
CPT/HCPCS: 36415; 71045; 71250; 80053; 83605; 83880; 84484; 85025; 87040; 93005; 94640; 96374; 99285; J2930

== ENCOUNTER 2017-07-31 14:04 | Emergency (ER) | payer OTHER ==
[~2017-07-31] VITALS: Ht 185.4 cm; Wt 99.3 kg
[2017-07-31 14:29] VITALS: BP 135/84
== END 2017-07-31 22:55 | disposition left against medical advice (07) ==
LOC: ER 14:04
DX: S08.89XA Traumatic amputation of other parts of head, initial encounter (principal); R51 Headache; Z53.21 Procedure and treatment not carried out due to patient leaving prior to being seen by health care provider; W19.XXXA Unspecified fall, initial encounter; Y93.89 Activity, other specified; Y99.8 Other external cause status; Y92.091 Bathroom in other non-institutional residence as the place of occurrence of the external cause
CPT/HCPCS: 70450

== ENCOUNTER 2017-07-31 22:54 | Emergency (ER) | payer OTHER ==
[~2017-07-31] VITALS: Ht 185.4 cm; Wt 99.8 kg
[2017-07-31 23:07] VITALS: BP 158/93
[2017-07-31 23:36] LABS: Basophils # (auto) 0.1 uL; Eosinophils # (auto) 0.1 uL; Eosinophils % (auto) 1.9 % (0.0-7.0); Hemoglobin 14.5 g/dL (13.5-17.5); Lymphocytes # (auto) 1.7 uL; Lymphocytes % (auto) 26.8 % (10.0-50.0); Mean Corpuscular Hemoglobin 27.9 pg (28.0-32.0); Mean Corpuscular Hgb Conc. 32.2 g/dL (32.0-36.0); Mean Corpuscular Volume 86.7 fL (80.0-100.0); Monocytes # (auto) 0.7 uL; Monocytes % (auto) 11.4 % (0.0-12.0); Neutrophils # (auto) 3.8 uL; Neutrophils % (auto) 58.9 % (37.0-80.0); Nucleated Red Blood Cells % 0.1 %; Platelet Count (auto) 185 10^3/uL (140-450); Red Blood Cells 5.19 10^6/uL (4.5-5.90); White Blood Cell 6.4 10^3/uL (4.4-10.8)
[2017-07-31 23:54] LABS: Alanine Aminotransferase 40 U/L (16-61); Albumin 3.1 g/dL (3.4-5.0); Anion Gap 7 (5-15); Aspartate Aminotransferase 27 U/L (15-37); BUN/Creatinine Ratio 16.7; Blood Urea Nitrogen 24 mg/dL (7-18); Calcium 8.6 mg/dL (8.5-10.1); Carbon Dioxide 28 mmol/L (21-32); Chloride 106 mmol/L (98-107); GFR African American 62 mL/min; GFR Non-African American 51 mL/min; Glucose 166 mg/dL (74-106); INR 3.6 (0.9-1.15); Magnesium 2.2 mg/dL (1.6-2.6); Partial Thromboplastin Time 48.2 sec (22.64-33.71); Potassium 4.3 mmol/L (3.5-5.1); Prothrombin Time 39.7 sec (9.37-12.3); Sodium 141 mmol/L (136-145)
[2017-07-31 23:58] LABS: Alkaline Phosphatase 126 U/L (45-117); Bilirubin, Total 0.2 mg/dL (0.2-1.0); Total Protein 7.4 g/dL (6.4-8.2)
== END 2017-08-01 06:20 | disposition left against medical advice (07) ==
LOC: ER 22:54
DX: R55 Syncope and collapse (principal); Z53.21 Procedure and treatment not carried out due to patient leaving prior to being seen by health care provider
CPT/HCPCS: 36415; 70450; 71045; 72125; 80053; 83735; 83880; 84443; 84484; 85025; 85379; 85610; 85730; 93005

== ENCOUNTER 2018-11-11 22:59 | Emergency (ER) | payer OTHER ==
[~2018-11-11] VITALS: Ht 185.4 cm; Wt 95.3 kg
[2018-11-11 23:32] LABS: Basophils # (auto) 0.2 uL; Basophils % (auto) 3.5 % (0.0-2.0); Eosinophils # (auto) 0.2 uL; Eosinophils % (auto) 3.4 % (0.0-7.0); Hematocrit 41.8 % (41.0-53.0); Hemoglobin 13.5 g/dL (13.5-17.5); Lymphocytes # (auto) 1.6 uL; Lymphocytes % (auto) 25.4 % (10.0-50.0); Mean Corpuscular Hemoglobin 27.2 pg (28.0-32.0); Mean Corpuscular Hgb Conc. 32.2 g/dL (32.0-36.0); Mean Corpuscular Volume 84.4 fL (80.0-100.0); Monocytes # (auto) 0.8 uL; Monocytes % (auto) 12.6 % (0.0-12.0); Neutrophils # (auto) 3.5 uL; Neutrophils % (auto) 55.1 % (37.0-80.0); Platelet Count (auto) 157 10^3/uL (140-450); Red Blood Cells 4.95 10^6/uL (4.5-5.90); Red Cell Distribution Width 17.9 % (11.8-14.3); White Blood Cell 6.4 10^3/uL (4.4-10.8)
[2018-11-11 23:49] LABS: INR 1.5 (0.9-1.15); Partial Thromboplastin Time 28.6 sec (23.64-32.05)
[2018-11-11 23:53] LABS: Albumin 3.2 g/dL (3.4-5.0); BUN/Creatinine Ratio 16.3; Calcium 8.5 mg/dL (8.5-10.1); Magnesium 2.3 mg/dL (1.6-2.6); Potassium 4.8 mmol/L (3.5-5.1)
[2018-11-11 23:53] LABS: Urine Bacteria FEW /hpf (None Seen); Urine Blood Negative /uL (Negative); Urine Hyaline Cast MOD /lpf (0 - 2); Urine Specific Gravity 1.011 (1.001-1.035); Urine WBC <1 /hpf (0 - 3)
[2018-11-12 00:09] LABS: Bilirubin, Total 0.3 mg/dL (0.2-1.0); Total Protein 7.1 g/dL (6.4-8.2)
[2018-11-12 07:45] VITALS: BP 137/82
== END 2018-11-12 09:14 | disposition home or self-care (01) ==
LOC: ER 23:01
DX: I11.0 Hypertensive heart disease with heart failure (principal); I50.9 Heart failure, unspecified; E11.21 Type 2 diabetes mellitus with diabetic nephropathy; R60.0 Localized edema; I25.10 Atherosclerotic heart disease of native coronary artery without angina pectoris; E46 Unspecified protein-calorie malnutrition; E11.65 Type 2 diabetes mellitus with hyperglycemia; I48.91 Unspecified atrial fibrillation; J44.9 Chronic obstructive pulmonary disease, unspecified; E78.5 Hyperlipidemia, unspecified; I25.2 Old myocardial infarction; E11.9 Type 2 diabetes mellitus without complications; Z86.73 Personal history of transient ischemic attack (TIA), and cerebral infarction without residual deficits; Z98.61 Coronary angioplasty status; Z68.27 Body mass index [BMI] 27.0-27.9, adult
CPT/HCPCS: 36415; 71046; 80053; 81001; 83735; 83880; 84484; 85025; 85610; 85730; 93005

== ENCOUNTER 2020-05-29 19:14 | Inpatient (IN) | payer OTHER ==
[~2020-05-29] VITALS: Ht 182.9 cm; Wt 98.0 kg
[~2020-05-29 19:14] MED LIST changes: -BEN10T PO; +BENA10TA10 PO
[2020-05-29 23:51] LABS: Basophils # (auto) 0 10 ^3/uL (0-0.2); Basophils % (auto) 0.1 % (0.0-2.0); Eosinophils # (auto) 0 10 ^3/uL (0-0.8); Eosinophils % (auto) 0.2 % (0.0-7.0); Hematocrit 34.3 % (41.0-53.0); Hemoglobin 11.3 g/dL (13.5-17.5); Lymphocytes # (auto) 0.2 10 ^3/uL (0.4-5.4); Lymphocytes % (auto) 3.8 % (10.0-50.0); Mean Corpuscular Hemoglobin 28.8 pg (28.0-32.0); Mean Corpuscular Volume 87.3 fL (80.0-100.0); Monocytes # (auto) 0.5 10 ^3/uL (0-1.3); Monocytes % (auto) 9.9 % (0.0-12.0); Neutrophils # (auto) 4.1 10 ^3/uL (1.6-8.6); Nucleated Red Blood Cells % 0.1 %; Platelet Count (auto) 111 10^3/uL (140-450); Red Blood Cells 3.93 10^6/uL (4.5-5.90); Red Cell Distribution Width 17.4 % (11.8-14.3); White Blood Cell 4.8 10^3/uL (4.4-10.8)
[2020-05-30 00:08] LABS: INR 3.38 (0.9-1.15); Partial Thromboplastin Time 41.2 sec (23.0-31.2)
[2020-05-30 00:11] LABS: Albumin 1.8 g/dL (3.4-5.0); BUN/Creatinine Ratio 23.5; Calcium 7.8 mg/dL (8.5-10.1); Magnesium 2.4 mg/dL (1.6-2.6); Potassium 3.2 mmol/L (3.5-5.1)
[2020-05-30 00:16] LABS: Bilirubin, Total 0.8 mg/dL (0.2-1.0); Total Protein 6.1 g/dL (6.4-8.2)
[2020-05-30] MEDS ORDERED: ENOXAPARIN SOD 100 MG/1 ML SYRINGE SC ONE (07:00)
[2020-05-30] MEDS ORDERED: POTASSIUM EFFERVESENT TAB 25 MEQ PO ONE (07:00)
[2020-05-30] MEDS ORDERED: FUROSEMIDE 40 MG/4 ML VIAL IV ONE (07:00)
[2020-05-30] MEDS ORDERED: AZITHROMYCIN 500MG/ 250ML 250 ML IV ONE (07:00)
[2020-05-30] MEDS ORDERED: PIPERACILLIN-TAZOB 3.375GM 100 ML IV ONE ×2 (07:00→09:30)
[2020-05-30] MEDS ORDERED: NITROGLYCERIN 0.4 MG SL TAB SL PRN (09:15)
[2020-05-30] MEDS ORDERED: ACETAMINOPHEN 500 MG TAB PO PRN (09:15)
[2020-05-30] MEDS ORDERED: MORPHINE SULF INJ 2 MG/ML SYRINGE 1ML IV PRN ×2 (09:15)
[2020-05-30] MEDS ORDERED: DEXTROSE (50%) 50ML SYRG IV PRN (09:15)
[2020-05-30] MEDS ORDERED: VANCOMYCIN PER PHARMACY 0 MG IV SCH (09:15)
[2020-05-30] MEDS ORDERED: cefTRIAXone 1GM/50ML D5W 50 ML IV ONE (09:15)
[2020-05-30 10:21] LABS: CRP High Sensitivity 17.4 mg/dL (< 0.3)
[2020-05-30] MEDS: AMIODARONE HCL 200 MG TAB PO SCH (10:46)
[2020-05-30] MEDS: CLOPIDOGREL BISULFATE 75 MG TAB PO SCH (10:47)
[2020-05-30] MEDS: CARVEDILOL 12.5 MG TAB PO SCH ×2 (10:47→20:24)
[2020-05-30] MEDS: BENAZEPRIL HCL 10 MG TAB PO SCH ×2 (10:47→20:25)
[2020-05-30] MEDS: ACCU-CHEK COMFORT CURVE STRIP VI SCH ×3 (11:10→21:34)
[2020-05-30] MEDS: InsuLIN REG 1unit/0.01ml Soln (100units/ml) SC SCH ×3 (11:16→21:34)
[2020-05-30] MEDS: FAMOTIDINE 20 MG TAB PO SCH ×2 (11:17→20:24)
[2020-05-30] MEDS ORDERED: VENL37.511 PO (15:07)
[2020-05-30] MEDS ORDERED: WARF5TAB71 PO (15:07)
[2020-05-30] MEDS ORDERED: AMIO200T33 PO (15:07)
[2020-05-30] MEDS ORDERED: ATOR20TA50 PO (15:07)
[2020-05-30] MEDS ORDERED: CARV12.544 PO (15:07)
[2020-05-30] MEDS ORDERED: TRAZ100T3 PO (15:07)
[2020-05-30] MEDS ORDERED: WARF6TAB21 PO (15:07)
[2020-05-30] MEDS ORDERED: GLIP5TAB12 PO (15:07)
[2020-05-30] MEDS ORDERED: PREG75CA PO (15:07)
[2020-05-30] MEDS ORDERED: METO2.5T11 PO (15:07)
[2020-05-30] MEDS ORDERED: VANCOMYCIN 1GM/250ML 250 ML IV ONE (17:00)
[2020-05-30] MEDS: ATORVASTATIN 20 MG TAB PO SCH (20:24)
[2020-05-30 23:00] VITALS: BP 105/54
[2020-05-31 00:10] VITALS: BP 105/54
[2020-05-31] MEDS: InsuLIN REG 1unit/0.01ml Soln (100units/ml) SC SCH ×4 (06:40→22:00)
[2020-05-31] MEDS: ACCU-CHEK COMFORT CURVE STRIP VI SCH ×4 (06:41→22:20)
[2020-05-31 07:26] LABS: Basophils # (auto) 0 10 ^3/uL (0-0.2); Basophils % (auto) 0.2 % (0.0-2.0); Eosinophils # (auto) 0 10 ^3/uL (0-0.8); Eosinophils % (auto) 0.1 % (0.0-7.0); Hematocrit 33.7 % (41.0-53.0); Hemoglobin 11.1 g/dL (13.5-17.5); Lymphocytes # (auto) 0.2 10 ^3/uL (0.4-5.4); Lymphocytes % (auto) 4.2 % (10.0-50.0); Mean Corpuscular Hemoglobin 28.3 pg (28.0-32.0); Mean Corpuscular Volume 85.9 fL (80.0-100.0); Monocytes # (auto) 0.3 10 ^3/uL (0-1.3); Monocytes % (auto) 6.3 % (0.0-12.0); Neutrophils # (auto) 4.6 10 ^3/uL (1.6-8.6); Neutrophils % (auto) 89.2 % (37.0-80.0); Nucleated Red Blood Cells % 0.1 %; Platelet Count (auto) 119 10^3/uL (140-450); Red Blood Cells 3.93 10^6/uL (4.5-5.90); Red Cell Distribution Width 17.3 % (11.8-14.3); White Blood Cell 5.1 10^3/uL (4.4-10.8)
[2020-05-31 07:43] LABS: BUN/Creatinine Ratio 24.5; Calcium 7.5 mg/dL (8.5-10.1); Potassium 3.4 mmol/L (3.5-5.1)
[2020-05-31 08:00] VITALS: BP 122/67
[2020-05-31 08:15] LABS: Partial Thromboplastin Time 47.6 sec (23.0-31.2)
[2020-05-31] MEDS: BENAZEPRIL HCL 10 MG TAB PO SCH ×2 (10:00→22:19)
[2020-05-31] MEDS: ASPirin 81 mg TAB PO SCH (10:00)
[2020-05-31] MEDS: FUROSEMIDE 20 MG/2 ML VIAL IV SCH (10:00)
[2020-05-31] MEDS: FAMOTIDINE 20 MG TAB PO SCH (10:00)
[2020-05-31] MEDS: CARVEDILOL 12.5 MG TAB PO SCH ×2 (10:00→22:00)
[2020-05-31] MEDS: AMIODARONE HCL 200 MG TAB PO SCH (10:00)
[2020-05-31] MEDS: CLOPIDOGREL BISULFATE 75 MG TAB PO SCH (10:00)
[2020-05-31 16:12] VITALS: BP 91/50
[2020-05-31] MEDS ORDERED: VANCOMYCIN 1GM/250ML 250 ML IV SCH (17:00)
[2020-05-31 20:00] VITALS: BP 107/60
[2020-05-31] MEDS ORDERED: REMDESIVIR 200 MG in NS 210ml LOADING DOSE ADULT IV ONE (21:00)
[2020-05-31] MEDS ORDERED: REMDESIVIR PER PHARMACY 0 ML IV SCH (21:00)
[2020-05-31] MEDS: ATORVASTATIN 20 MG TAB PO SCH (22:19)
[2020-06-01] VITALS: BP 112/65
[2020-06-01] MEDS: BUDESONIDE (INHALATION) 180 MCG IH IN SCH ×3 (00:37→20:10)
[2020-06-01] MEDS: ACCU-CHEK COMFORT CURVE STRIP VI SCH ×4 (06:00→22:27)
[2020-06-01] MEDS: InsuLIN REG 1unit/0.01ml Soln (100units/ml) SC SCH ×4 (06:00→22:29)
[2020-06-01 08:00] VITALS: BP 119/56
[2020-06-01] MEDS: ASPirin 81 mg TAB PO SCH (08:14)
[2020-06-01] MEDS: DexAMETHasone SOD PHOS 4 MG/1ML SDV INJ IV SCH (08:14)
[2020-06-01] MEDS: ZINC SULFATE 220mg CAP or TAB PO SCH (08:15)
[2020-06-01] MEDS: AMIODARONE HCL 200 MG TAB PO SCH (08:15)
[2020-06-01] MEDS: CARVEDILOL 12.5 MG TAB PO SCH ×2 (08:16→22:00)
[2020-06-01] MEDS: ASCORBIC ACID 1,000 MG TAB PO SCH (08:17)
[2020-06-01] MEDS: FAMOTIDINE 20 MG TAB PO SCH (08:17)
[2020-06-01] MEDS: CLOPIDOGREL BISULFATE 75 MG TAB PO SCH (08:17)
[2020-06-01] MEDS: ENOXAPARIN SOD 30 MG/0.3 ML SYRINGE SC SCH (08:18)
[2020-06-01] MEDS: CHOLECALCIFEROL (VITD3) 2,000 UNIT CAP PO SCH (08:18)
[2020-06-01] MEDS: BENAZEPRIL HCL 10 MG TAB PO SCH ×2 (08:19→22:26)
[2020-06-01] MEDS: HYDROcodone-ACET 5/325MG TAB PO PRN ×2 (08:20→16:56)
[2020-06-01 08:24] LABS: Basophils # (auto) 0 10 ^3/uL (0-0.2); Basophils % (auto) 0.3 % (0.0-2.0); Eosinophils # (auto) 0 10 ^3/uL (0-0.8); Eosinophils % (auto) 0.5 % (0.0-7.0); Hematocrit 36.1 % (41.0-53.0); Hemoglobin 11.9 g/dL (13.5-17.5); Lymphocytes # (auto) 0.1 10 ^3/uL (0.4-5.4); Lymphocytes % (auto) 2.6 % (10.0-50.0); Mean Corpuscular Hemoglobin 28.3 pg (28.0-32.0); Mean Corpuscular Hgb Conc. 32.8 g/dL (32.0-36.0); Mean Corpuscular Volume 86.1 fL (80.0-100.0); Monocytes # (auto) 0.4 10 ^3/uL (0-1.3); Monocytes % (auto) 7.2 % (0.0-12.0); Neutrophils # (auto) 4.8 10 ^3/uL (1.6-8.6); Neutrophils % (auto) 89.4 % (37.0-80.0); Nucleated Red Blood Cells % 0.2 %; Platelet Count (auto) 142 10^3/uL (140-450); Red Cell Distribution Width 17.2 % (11.8-14.3); White Blood Cell 5.4 10^3/uL (4.4-10.8)
[2020-06-01 08:47] LABS: Calcium 7.8 mg/dL (8.5-10.1)
[2020-06-01 08:49] LABS: BUN/Creatinine Ratio 22.8
[2020-06-01] MEDS: ALBUTEROL SULF HFA 90MCG INH 200DOSE IN PRN ×2 (08:50→20:11)
[2020-06-01 08:52] LABS: Potassium 2.9 mmol/L (3.5-5.1)
[2020-06-01] MEDS ORDERED: POTASSIUM CHL 20 Meq TABLET PO ONE (09:15)
[2020-06-01] MEDS: FUROSEMIDE 20 MG/2 ML VIAL IV SCH (10:00)
[2020-06-01] MEDS: VANCOMYCIN 1GM/250ML 250 ML IV SCH (13:05)
[2020-06-01 16:00] VITALS: BP 116/63
[2020-06-01] MEDS: REMDESIVIR 100mg 100 MG in SODIUM CHL 0.9% 230 ML IV SCH (16:57)
[2020-06-01 20:00] VITALS: BP 125/78
[2020-06-01] MEDS: ATORVASTATIN 20 MG TAB PO SCH (22:25)
[2020-06-02] VITALS: BP 125/78
[2020-06-02] MEDS: ACCU-CHEK COMFORT CURVE STRIP VI SCH ×4 (06:33→22:00)
[2020-06-02] MEDS: InsuLIN REG 1unit/0.01ml Soln (100units/ml) SC SCH ×4 (06:37→22:00)
[2020-06-02] MEDS: BUDESONIDE (INHALATION) 180 MCG IH IN SCH ×2 (07:45→19:47)
[2020-06-02] MEDS: ALBUTEROL SULF HFA 90MCG INH 200DOSE IN PRN ×2 (07:45→19:47)
[2020-06-02 07:50] LABS: Potassium 3.5 mmol/L (3.5-5.1)
[2020-06-02 08:00] VITALS: BP 121/66
[2020-06-02 08:13] LABS: Albumin 1.7 g/dL (3.4-5.0); BUN/Creatinine Ratio 29.4; Bilirubin, Total 0.8 mg/dL (0.2-1.0); Calcium 7.8 mg/dL (8.5-10.1); Total Protein 6.4 g/dL (6.4-8.2)
[2020-06-02] MEDS: DexAMETHasone SOD PHOS 4 MG/1ML SDV INJ IV SCH (09:08)
[2020-06-02] MEDS: VANCOMYCIN 1GM/250ML 250 ML IV SCH (09:08)
[2020-06-02] MEDS: FUROSEMIDE 20 MG/2 ML VIAL IV SCH (09:09)
[2020-06-02] MEDS: ASPirin 81 mg TAB PO SCH (09:09)
[2020-06-02] MEDS: ZINC SULFATE 220mg CAP or TAB PO SCH (09:09)
[2020-06-02] MEDS: CARVEDILOL 12.5 MG TAB PO SCH ×2 (09:11→22:00)
[2020-06-02] MEDS: AMIODARONE HCL 200 MG TAB PO SCH (09:11)
[2020-06-02] MEDS: FAMOTIDINE 20 MG TAB PO SCH (09:12)
[2020-06-02] MEDS: BENAZEPRIL HCL 10 MG TAB PO SCH ×2 (09:12→22:00)
[2020-06-02] MEDS: ASCORBIC ACID 1,000 MG TAB PO SCH (09:12)
[2020-06-02] MEDS: CLOPIDOGREL BISULFATE 75 MG TAB PO SCH (09:12)
[2020-06-02] MEDS: CHOLECALCIFEROL (VITD3) 2,000 UNIT CAP PO SCH (09:12)
[2020-06-02] MEDS: ENOXAPARIN SOD 30 MG/0.3 ML SYRINGE SC SCH (09:13)
[2020-06-02] MEDS ORDERED: IOHEXOL 300 MG/ML 100ML BOTTLE IJ ONE (10:02)
[2020-06-02 12:39] LABS: Calcium 7.8 mg/dL (8.5-10.1); Potassium 4.5 mmol/L (3.5-5.1)
[2020-06-02 13:17] LABS: INR 2.68 (0.9-1.15)
[2020-06-02] MEDS: HYDROcodone-ACET 5/325MG TAB PO PRN (13:55)
[2020-06-02 15:51] VITALS: BP 124/68
[2020-06-02] MEDS: REMDESIVIR 100mg 100 MG in SODIUM CHL 0.9% 230 ML IV SCH (16:13)
[2020-06-02 20:00] VITALS: BP 115/66
[2020-06-02] MEDS: ATORVASTATIN 20 MG TAB PO SCH (22:00)
[2020-06-03] MEDS: VANCOMYCIN 1GM/250ML 250 ML IV SCH (05:18)
[2020-06-03 05:51] VITALS: BP 124/66
[2020-06-03] MEDS: InsuLIN REG 1unit/0.01ml Soln (100units/ml) SC SCH ×4 (06:37→21:52)
[2020-06-03] MEDS: ACCU-CHEK COMFORT CURVE STRIP VI SCH ×4 (06:39→21:52)
[2020-06-03 08:00] VITALS: BP 109/56
[2020-06-03 08:05] LABS: INR 2.47 (0.9-1.15)
[2020-06-03 08:10] LABS: Potassium 4.4 mmol/L (3.5-5.1)
[2020-06-03 08:24] LABS: Albumin 1.9 g/dL (3.4-5.0); BUN/Creatinine Ratio 34.7; Bilirubin, Total 3.6 mg/dL (0.2-1.0); Calcium 7.9 mg/dL (8.5-10.1); Magnesium 2.6 mg/dL (1.6-2.6); Total Protein 6.5 g/dL (6.4-8.2)
[2020-06-03] MEDS: CLOPIDOGREL BISULFATE 75 MG TAB PO SCH (08:37)
[2020-06-03] MEDS: ASPirin 81 mg TAB PO SCH (08:37)
[2020-06-03] MEDS: CARVEDILOL 12.5 MG TAB PO SCH ×2 (08:38→21:51)
[2020-06-03] MEDS: BENAZEPRIL HCL 10 MG TAB PO SCH ×2 (08:39→21:51)
[2020-06-03] MEDS: AMIODARONE HCL 200 MG TAB PO SCH (08:39)
[2020-06-03 09:35] LABS: Basophils # (auto) 0 10 ^3/uL (0-0.2); Basophils % (auto) 0.2 % (0.0-2.0); Eosinophils # (auto) 0 10 ^3/uL (0-0.8); Hematocrit 34.3 % (41.0-53.0); Hemoglobin 11.5 g/dL (13.5-17.5); Lymphocytes # (auto) 0.2 10 ^3/uL (0.4-5.4); Lymphocytes % (auto) 2.2 % (10.0-50.0); Mean Corpuscular Hemoglobin 27.9 pg (28.0-32.0); Mean Corpuscular Hgb Conc. 33.5 g/dL (32.0-36.0); Mean Corpuscular Volume 83.2 fL (80.0-100.0); Monocytes # (auto) 0.6 10 ^3/uL (0-1.3); Monocytes % (auto) 7.7 % (0.0-12.0); Neutrophils # (auto) 6.8 10 ^3/uL (1.6-8.6); Neutrophils % (auto) 89.9 % (37.0-80.0); Nucleated Red Blood Cells % 0.8 %; Red Blood Cells 4.12 10^6/uL (4.5-5.90); Red Cell Distribution Width 17.8 % (11.8-14.3); White Blood Cell 7.6 10^3/uL (4.4-10.8)
[2020-06-03 09:38] LABS: Platelet Count (auto) 82 10^3/uL (140-450)
[2020-06-03] MEDS: FUROSEMIDE 20 MG/2 ML VIAL IV SCH (10:00)
[2020-06-03] MEDS: ENOXAPARIN SOD 30 MG/0.3 ML SYRINGE SC SCH (10:00)
[2020-06-03] MEDS: BUDESONIDE (INHALATION) 180 MCG IH IN SCH ×2 (10:30→19:36)
[2020-06-03] MEDS: FAMOTIDINE 20 MG TAB PO SCH (13:00)
[2020-06-03] MEDS: CHOLECALCIFEROL (VITD3) 2,000 UNIT CAP PO SCH (13:00)
[2020-06-03] MEDS: ASCORBIC ACID 1,000 MG TAB PO SCH (13:00)
[2020-06-03] MEDS: ZINC SULFATE 220mg CAP or TAB PO SCH (13:00)
[2020-06-03] MEDS: HYDROcodone-ACET 5/325MG TAB PO PRN (13:09)
[2020-06-03] MEDS ORDERED: LIDOCAINE 1% (LOCAL ANESTH.) PF 5ml SDV ID ONE (14:30)
[2020-06-03 15:47] VITALS: BP 120/65
[2020-06-03] MEDS: REMDESIVIR 100mg 100 MG in SODIUM CHL 0.9% 230 ML IV SCH (16:30)
[2020-06-03] MEDS: ALBUTEROL SULF HFA 90MCG INH 200DOSE IN PRN (19:36)
[2020-06-03] MEDS: SODIUM CHLOR 0.9% PF (SALINE LOCK) 10ML VIAL/SYR IV SCH (21:51)
[2020-06-03] MEDS: ATORVASTATIN 20 MG TAB PO SCH (21:51)
[2020-06-04] MEDS: VANCOMYCIN 1GM/250ML 250 ML IV SCH (01:22)
[2020-06-04] MEDS: ACCU-CHEK COMFORT CURVE STRIP VI SCH ×4 (06:57→22:00)
[2020-06-04] MEDS: InsuLIN REG 1unit/0.01ml Soln (100units/ml) SC SCH ×4 (06:57→22:00)
[2020-06-04 07:23] LABS: Hemoglobin 10.9 g/dL (13.5-17.5)
[2020-06-04 07:25] LABS: Hematocrit 31.5 % (41.0-53.0); Mean Corpuscular Hemoglobin 28.3 pg (28.0-32.0); Mean Corpuscular Hgb Conc. 34.5 g/dL (32.0-36.0); Platelet Count (auto) 50 10^3/uL (140-450); Red Blood Cells 3.84 10^6/uL (4.5-5.90); Red Cell Distribution Width 18.9 % (11.8-14.3)
[2020-06-04 07:39] LABS: Band Neutrophils % (manual) 0; Basophils % (manual) 0 (0.0-2.0); Blast Cells 0; Eosinophils % (manual) 0 (0-7); Myelocytes % 0; Promyelocytes % 0; Reactive Lymphocytes 0
[2020-06-04 07:40] LABS: Albumin 1.7 g/dL (3.4-5.0); Calcium 7.5 mg/dL (8.5-10.1); Magnesium 2.4 mg/dL (1.6-2.6)
[2020-06-04 07:43] LABS: BUN/Creatinine Ratio 32.5; Bilirubin, Total 2.5 mg/dL (0.2-1.0); Total Protein 5.5 g/dL (6.4-8.2)
[2020-06-04 08:00] VITALS: BP 129/66
[2020-06-04 08:25] LABS: Lymphocytes % (manual) 2 (10.0-50.0); Metamyelocytes % 1; Monocytes % (manual) 5 (0-12)
[2020-06-04] MEDS: ENOXAPARIN SOD 30 MG/0.3 ML SYRINGE SC SCH (10:00)
[2020-06-04] MEDS ORDERED: MEROPENEM 500MG IVPB 50 ML IV SCH (11:00)
[2020-06-04] MEDS: ASPirin 81 mg TAB PO SCH (11:45)
[2020-06-04] MEDS: ASCORBIC ACID 1,000 MG TAB PO SCH (11:45)
[2020-06-04] MEDS: SODIUM CHLOR 0.9% PF (SALINE LOCK) 10ML VIAL/SYR IV SCH ×2 (11:45→22:00)
[2020-06-04] MEDS: CHOLECALCIFEROL (VITD3) 2,000 UNIT CAP PO SCH (11:45)
[2020-06-04] MEDS: CLOPIDOGREL BISULFATE 75 MG TAB PO SCH (11:45)
[2020-06-04] MEDS: FAMOTIDINE 20 MG TAB PO SCH (11:45)
[2020-06-04] MEDS: ZINC SULFATE 220mg CAP or TAB PO SCH (11:45)
[2020-06-04] MEDS: BUDESONIDE (INHALATION) 180 MCG IH IN SCH ×2 (11:45→19:15)
[2020-06-04] MEDS: DOXYCYCLINE 100MG/250ML 250 ML IV SCH ×2 (11:46→22:00)
[2020-06-04] MEDS: CARVEDILOL 12.5 MG TAB PO SCH ×2 (12:24→22:00)
[2020-06-04] MEDS: AMIODARONE HCL 200 MG TAB PO SCH (12:24)
[2020-06-04] MEDS ORDERED: [UNRECOGNIZED DRUG - OTHER] IV SCH (14:00)
[2020-06-04] MEDS: HYDROcodone-ACET 5/325MG TAB PO PRN (15:01)
[2020-06-04 16:00] VITALS: BP 104/46
[2020-06-04] MEDS: ALBUTEROL SULF HFA 90MCG INH 200DOSE IN PRN (19:15)
[2020-06-04 20:00] VITALS: BP 91/48
[2020-06-04] MEDS: ATORVASTATIN 20 MG TAB PO SCH (22:00)
[2020-06-05] VITALS: BP 118/59
[2020-06-05] MEDS ORDERED: FUROSEMIDE 40 MG/4 ML VIAL IV ONE
[2020-06-05] MEDS: MEROPENEM 500MG IVPB 50 ML IV SCH ×2 (05:45→18:00)
[2020-06-05] MEDS: ALBUTEROL SULF HFA 90MCG INH 200DOSE IN PRN ×2 (06:30→20:45)
[2020-06-05] MEDS: BUDESONIDE (INHALATION) 180 MCG IH IN SCH ×2 (06:30→20:45)
[2020-06-05] MEDS: InsuLIN REG 1unit/0.01ml Soln (100units/ml) SC SCH ×4 (06:42→22:00)
[2020-06-05] MEDS: ACCU-CHEK COMFORT CURVE STRIP VI SCH ×4 (06:42→22:00)
[2020-06-05 08:00] VITALS: BP 116/41
[2020-06-05] MEDS: ENOXAPARIN SOD 30 MG/0.3 ML SYRINGE SC SCH (10:00)
[2020-06-05 11:31] LABS: Basophils # (auto) 0.1 10 ^3/uL (0-0.2); Eosinophils # (auto) 0 10 ^3/uL (0-0.8); Eosinophils % (auto) 0.2 % (0.0-7.0); Lymphocytes # (auto) 0.2 10 ^3/uL (0.4-5.4); Monocytes # (auto) 0.9 10 ^3/uL (0-1.3); Monocytes % (auto) 6.6 % (0.0-12.0)
[2020-06-05 11:32] LABS: Basophils % (auto) 0.5 % (0.0-2.0); Hematocrit 26.5 % (41.0-53.0); Lymphocytes % (auto) 1.3 % (10.0-50.0); Mean Corpuscular Hemoglobin 27.2 pg (28.0-32.0); Mean Corpuscular Hgb Conc. 34.1 g/dL (32.0-36.0); Mean Corpuscular Volume 79.7 fL (80.0-100.0); Neutrophils # (auto) 12.1 10 ^3/uL (1.6-8.6); Neutrophils % (auto) 91.4 % (37.0-80.0); Platelet Count (auto) 39 10^3/uL (140-450); Red Blood Cells 3.32 10^6/uL (4.5-5.90); White Blood Cell 13.3 10^3/uL (4.4-10.8)
[2020-06-05] MEDS: DOXYCYCLINE 100MG/250ML 250 ML IV SCH ×2 (12:08→22:00)
[2020-06-05] MEDS: SODIUM CHLOR 0.9% PF (SALINE LOCK) 10ML VIAL/SYR IV SCH ×2 (12:08→22:00)
[2020-06-05] MEDS: FUROSEMIDE 40 MG/4 ML VIAL IV SCH (12:08)
[2020-06-05] MEDS: AMIODARONE HCL 200 MG TAB PO SCH (12:09)
[2020-06-05] MEDS: ASPirin 81 mg TAB PO SCH (12:09)
[2020-06-05] MEDS: ZINC SULFATE 220mg CAP or TAB PO SCH (12:09)
[2020-06-05] MEDS: FAMOTIDINE 20 MG TAB PO SCH (12:10)
[2020-06-05] MEDS: CLOPIDOGREL BISULFATE 75 MG TAB PO SCH (12:10)
[2020-06-05] MEDS: CHOLECALCIFEROL (VITD3) 2,000 UNIT CAP PO SCH (12:10)
[2020-06-05] MEDS: ASCORBIC ACID 1,000 MG TAB PO SCH (12:10)
[2020-06-05] MEDS: CARVEDILOL 12.5 MG TAB PO SCH ×2 (12:10→22:00)
[2020-06-05 12:22] LABS: Potassium 3.8 mmol/L (3.5-5.1)
[2020-06-05 12:36] LABS: BUN/Creatinine Ratio 27.7
[2020-06-05 12:40] LABS: Calcium 7.3 mg/dL (8.5-10.1)
[2020-06-05 16:00] VITALS: BP 110/57
[2020-06-05] MEDS ORDERED: LORazepam 2MG/ML-1ML VIAL IV ONE (20:30)
[2020-06-05] MEDS: ATORVASTATIN 20 MG TAB PO SCH (22:00)
[2020-06-05] MEDS ORDERED: traZODone HCL 50 MG TAB PO PRN (22:30)
[2020-06-06] VITALS (16 sets, daily range): BP systolic 87–161; BP diastolic 39–65
[2020-06-06] MEDS: MEROPENEM 500MG IVPB 50 ML IV SCH ×3 (05:46→17:13)
[2020-06-06] MEDS: ACCU-CHEK COMFORT CURVE STRIP VI SCH ×4 (06:39→22:14)
[2020-06-06] MEDS: InsuLIN REG 1unit/0.01ml Soln (100units/ml) SC SCH ×4 (06:39→21:49)
[2020-06-06 07:33] LABS: Eosinophils # (auto) 0 10 ^3/uL (0-0.8); Eosinophils % (auto) 0.1 % (0.0-7.0); Hematocrit 25.4 % (41.0-53.0); Hemoglobin 8.7 g/dL (13.5-17.5); Lymphocytes # (auto) 0.1 10 ^3/uL (0.4-5.4); Monocytes % (auto) 8.3 % (0.0-12.0); Nucleated Red Blood Cells % 0.7 %
[2020-06-06 07:35] LABS: Basophils # (auto) 0 10 ^3/uL (0-0.2); Basophils % (auto) 0.1 % (0.0-2.0); Lymphocytes % (auto) 0.8 % (10.0-50.0); Mean Corpuscular Hemoglobin 27.3 pg (28.0-32.0); Mean Corpuscular Hgb Conc. 34.1 g/dL (32.0-36.0); Mean Corpuscular Volume 79.9 fL (80.0-100.0); Monocytes # (auto) 1.3 10 ^3/uL (0-1.3); Neutrophils # (auto) 14.7 10 ^3/uL (1.6-8.6); Neutrophils % (auto) 90.7 % (37.0-80.0); Red Blood Cells 3.18 10^6/uL (4.5-5.90); White Blood Cell 16.2 10^3/uL (4.4-10.8)
[2020-06-06 07:45] LABS: Platelet Count (auto) 39 10^3/uL (140-450)
[2020-06-06 08:02] LABS: Calcium 7.7 mg/dL (8.5-10.1)
[2020-06-06 08:21] LABS: INR 2.99 (0.9-1.15)
[2020-06-06] MEDS: BUDESONIDE (INHALATION) 180 MCG IH IN SCH ×2 (09:39→19:21)
[2020-06-06] MEDS: FUROSEMIDE 40 MG/4 ML VIAL IV SCH ×2 (10:00→15:14)
[2020-06-06] MEDS: CHOLECALCIFEROL (VITD3) 2,000 UNIT CAP PO SCH (10:00)
[2020-06-06] MEDS: ZINC SULFATE 220mg CAP or TAB PO SCH (10:00)
[2020-06-06] MEDS: ASCORBIC ACID 1,000 MG TAB PO SCH (10:00)
[2020-06-06] MEDS: FAMOTIDINE 20 MG TAB PO SCH (10:00)
[2020-06-06] MEDS ORDERED: DOPamine 1600MCG/ML D5W 250 ML IV SCH (11:30)
[2020-06-06] MEDS: SODIUM CHLOR 0.9% PF (SALINE LOCK) 10ML VIAL/SYR IV SCH ×2 (12:33→21:43)
[2020-06-06] MEDS: DOXYCYCLINE 100MG/250ML 250 ML IV SCH ×2 (12:34→21:43)
[2020-06-06] MEDS: AMIODARONE HCL 200 MG TAB PO SCH (12:34)
[2020-06-06] MEDS: CARVEDILOL 12.5 MG TAB PO SCH ×2 (12:39→21:45)
[2020-06-06 13:56] LABS: Protein, Urine 156.4 mg/dL (0.0-11.9)
[2020-06-06] MEDS: ALBUTEROL SULF HFA 90MCG INH 200DOSE IN PRN (19:21)
[2020-06-06] MEDS ORDERED: ROCURONIUM 10MG/ML 10ML VIAL IV ONE (20:16)
[2020-06-06] MEDS ORDERED: SUCCINYLCHOLINE CHLORIDE 20 MG/ML 10ML VIAL IV ONE ×2 (20:17→21:15)
[2020-06-06] MEDS ORDERED: ETOMIDATE (2MG/ML) 20ML VIAL IV ONE ×2 (20:17→21:15)
[2020-06-06] MEDS ORDERED: PROPOFOL 100 ML IV ONE ×2 (20:36→20:39)
[2020-06-06] MEDS ORDERED: ACETAMINOPHEN 650 mg PER 20.3 mL UD GT PRN (21:30)
[2020-06-06] MEDS ORDERED: NOREPINEPHRINE 8 MG/250ML KIT 250 ML IV ONE (21:39)
[2020-06-06] MEDS: PROPOFOL 100 ML IV SCH (21:41)
[2020-06-06] MEDS: DOPamine 1600MCG/ML D5W 250 ML IV SCH (21:42)
[2020-06-06] MEDS: ATORVASTATIN 20 MG TAB PO SCH (22:00)
[2020-06-06] MEDS: NOREPINEPHRINE 8 MG/250ML KIT 250 ML IV SCH (22:00)
[2020-06-07] VITALS (88 sets, daily range): BP systolic 83–167; BP diastolic 31–59
[2020-06-07] MEDS: HYDROCORTISONE SOD SUCC 100 MG/2ML INJ VIAL IV SCH ×4 (00:04→22:00)
[2020-06-07] MEDS: MIDAZOLAM DRIP 50 mg/50mL 50 ML IV SCH (00:30)
[2020-06-07 04:32] LABS: Basophils # (auto) 0 10 ^3/uL (0-0.2); Eosinophils # (auto) 0 10 ^3/uL (0-0.8); Hemoglobin 9.2 g/dL (13.5-17.5); Lymphocytes # (auto) 0.1 10 ^3/uL (0.4-5.4)
[2020-06-07 04:35] LABS: Basophils % (auto) 0.2 % (0.0-2.0); Eosinophils % (auto) 0.1 % (0.0-7.0); Hematocrit 28.1 % (41.0-53.0); Lymphocytes % (auto) 0.7 % (10.0-50.0); Mean Corpuscular Hgb Conc. 32.6 g/dL (32.0-36.0); Mean Corpuscular Volume 82.9 fL (80.0-100.0); Monocytes # (auto) 1.6 10 ^3/uL (0-1.3); Monocytes % (auto) 7.9 % (0.0-12.0); Neutrophils # (auto) 18.9 10 ^3/uL (1.6-8.6); Neutrophils % (auto) 91.1 % (37.0-80.0); Nucleated Red Blood Cells % 0.3 %; Platelet Count (auto) 46 10^3/uL (140-450); Red Cell Distribution Width 19.7 % (11.8-14.3); White Blood Cell 20.7 10^3/uL (4.4-10.8)
[2020-06-07 04:55] LABS: Potassium 4.2 mmol/L (3.5-5.1)
[2020-06-07 05:01] LABS: BUN/Creatinine Ratio 28.7; Calcium 7.1 mg/dL (8.5-10.1)
[2020-06-07] MEDS: MEROPENEM 500MG IVPB 50 ML IV SCH ×2 (06:00→18:40)
[2020-06-07] MEDS: ACCU-CHEK COMFORT CURVE STRIP VI SCH ×4 (06:21→22:00)
[2020-06-07] MEDS: InsuLIN REG 1unit/0.01ml Soln (100units/ml) SC SCH ×4 (06:31→22:00)
[2020-06-07] MEDS: BUDESONIDE (INHALATION) 0.5 MG/2 ML NEB NEB SCH ×3 (06:35→18:33)
[2020-06-07] MEDS: ALBUTEROL SULF 2.5 MG/0.5ML(0.5%) NEB SOLN NEB PRN ×3 (09:05→18:34)
[2020-06-07] MEDS: ASCORBIC ACID 1,000 MG TAB PO SCH (10:00)
[2020-06-07] MEDS ORDERED: ENOXAPARIN SOD 30 MG/0.3 ML SYRINGE SC SCH (10:00)
[2020-06-07] MEDS: SODIUM CHLOR 0.9% PF (SALINE LOCK) 10ML VIAL/SYR IV SCH ×2 (10:00→22:00)
[2020-06-07] MEDS: AMIODARONE HCL 200 MG TAB PO SCH (10:00)
[2020-06-07] MEDS: CHOLECALCIFEROL (VITD3) 2,000 UNIT CAP PO SCH (10:00)
[2020-06-07] MEDS: DOBUTamine 1000MCG/ML 250 ML IV SCH (10:00)
[2020-06-07] MEDS: FAMOTIDINE (10MG/ML) 2ML VL IV SCH (10:00)
[2020-06-07] MEDS: ZINC SULFATE 220mg CAP or TAB PO SCH (10:00)
[2020-06-07] MEDS: DOXYCYCLINE 100MG/250ML 250 ML IV SCH ×2 (10:00→22:00)
[2020-06-07] MEDS: DOPamine 1600MCG/ML D5W 250 ML IV SCH ×2 (10:26→11:15)
[2020-06-07] MEDS: CARVEDILOL 12.5 MG TAB PO SCH ×2 (10:45→22:00)
[2020-06-07] MEDS: NOREPINEPHRINE 8 MG/250ML KIT 250 ML IV SCH (11:20)
[2020-06-07] MEDS: PROPOFOL 100 ML IV SCH ×2 (12:00→18:42)
[2020-06-07] MEDS ORDERED: DEXTROSE (50%) 50ML SYRG IV PRN (12:15)
[2020-06-07] MEDS ORDERED: SODIUM BICARBONATE 8.4% INJ 50ML SYRINGE IV ONE (17:53)
[2020-06-07] MEDS ORDERED: EPINEPHrine HCL 1 MG/10 ML SYRG IV ONE (17:53)
[2020-06-07] MEDS ORDERED: DEXTROSE (50%) 50ML SYRG IV ONE (17:53)
[2020-06-07] MEDS: ATORVASTATIN 20 MG TAB PO SCH (22:00)
[2020-06-08] VITALS (97 sets, daily range): BP systolic 77–138; BP diastolic 35–62
[2020-06-08] MEDS: DOBUTamine 1000MCG/ML 250 ML IV SCH ×2 (03:30→18:39)
[2020-06-08 05:16] LABS: Basophils # (auto) 0 10 ^3/uL (0-0.2); Basophils % (auto) 0.2 % (0.0-2.0); Eosinophils # (auto) 0 10 ^3/uL (0-0.8); Hemoglobin 8.3 g/dL (13.5-17.5); Lymphocytes # (auto) 0.2 10 ^3/uL (0.4-5.4); Mean Corpuscular Hemoglobin 27.9 pg (28.0-32.0); Mean Corpuscular Hgb Conc. 34.6 g/dL (32.0-36.0); Mean Corpuscular Volume 80.8 fL (80.0-100.0); Monocytes # (auto) 1.3 10 ^3/uL (0-1.3); Monocytes % (auto) 6.9 % (0.0-12.0); Neutrophils # (auto) 16.9 10 ^3/uL (1.6-8.6); Neutrophils % (auto) 91.9 % (37.0-80.0); Nucleated Red Blood Cells % 0.1 %; Platelet Count (auto) 55 10^3/uL (140-450); Red Blood Cells 2.97 10^6/uL (4.5-5.90); Red Cell Distribution Width 19.6 % (11.8-14.3); White Blood Cell 18.4 10^3/uL (4.4-10.8)
[2020-06-08 05:22] LABS: Potassium 3.3 mmol/L (3.5-5.1)
[2020-06-08 05:29] LABS: Albumin 1.4 g/dL (3.4-5.0); BUN/Creatinine Ratio 29.7; Bilirubin, Total 1.2 mg/dL (0.2-1.0); Calcium 7.4 mg/dL (8.5-10.1); Total Protein 5.1 g/dL (6.4-8.2)
[2020-06-08 05:40] LABS: Lactic Acid w/Reflex 2.8 mmol/L (0.4-2.0)
[2020-06-08] MEDS: MEROPENEM 500MG IVPB 50 ML IV SCH ×2 (06:00→18:30)
[2020-06-08] MEDS: HYDROCORTISONE SOD SUCC 100 MG/2ML INJ VIAL IV SCH ×3 (06:00→22:13)
[2020-06-08] MEDS: ACCU-CHEK COMFORT CURVE STRIP VI SCH ×4 (06:53→22:13)
[2020-06-08] MEDS: InsuLIN REG 1unit/0.01ml Soln (100units/ml) SC SCH ×4 (06:53→22:14)
[2020-06-08] MEDS: MIDAZOLAM DRIP 50 mg/50mL 50 ML IV SCH (07:00)
[2020-06-08] MEDS: SODIUM CHLOR 0.9% PF (SALINE LOCK) 10ML VIAL/SYR IV SCH ×2 (09:14→21:48)
[2020-06-08] MEDS: FAMOTIDINE (10MG/ML) 2ML VL IV SCH (09:14)
[2020-06-08] MEDS: BUDESONIDE (INHALATION) 0.5 MG/2 ML NEB NEB SCH ×2 (09:15→22:12)
[2020-06-08] MEDS: ASCORBIC ACID 1,000 MG TAB PO SCH ×2 (09:16→10:00)
[2020-06-08] MEDS: PROPOFOL 100 ML IV SCH ×5 (09:23→23:00)
[2020-06-08] MEDS: DOXYCYCLINE 100MG/250ML 250 ML IV SCH ×2 (09:29→22:13)
[2020-06-08] MEDS: ZINC SULFATE 220mg CAP or TAB PO SCH (09:43)
[2020-06-08] MEDS: CARVEDILOL 12.5 MG TAB PO SCH (09:47)
[2020-06-08] MEDS: AMIODARONE HCL 200 MG TAB PO SCH (09:47)
[2020-06-08] MEDS: DOPamine 1600MCG/ML D5W 250 ML IV SCH (09:56)
[2020-06-08] MEDS: CHOLECALCIFEROL (VITD3) 2,000 UNIT CAP PO SCH (10:00)
[2020-06-08] MEDS: POTASSIUM CHL 20MEQ/100ML 100 ML IV SCH ×3 (12:25→16:28)
[2020-06-08] MEDS: NOREPINEPHRINE 8 MG/250ML KIT 250 ML IV SCH (14:34)
[2020-06-08] MEDS: ALBUTEROL SULF 2.5 MG/0.5ML(0.5%) NEB SOLN NEB PRN (22:13)
[2020-06-08] MEDS: ATORVASTATIN 20 MG TAB PO SCH (22:13)
[2020-06-09] VITALS (94 sets, daily range): BP systolic 75–162; BP diastolic 30–75
[2020-06-09] MEDS: MIDAZOLAM DRIP 50 mg/50mL 50 ML IV SCH (00:30)
[2020-06-09] MEDS: PROPOFOL 100 ML IV SCH ×6 (02:22→21:48)
[2020-06-09 05:08] LABS: Hematocrit 22.3 % (41.0-53.0); Hemoglobin 7.5 g/dL (13.5-17.5); Mean Corpuscular Hemoglobin 27.7 pg (28.0-32.0); Mean Corpuscular Hgb Conc. 33.8 g/dL (32.0-36.0); Mean Corpuscular Volume 82.1 fL (80.0-100.0); Platelet Count (auto) 37 10^3/uL (140-450); Red Blood Cells 2.72 10^6/uL (4.5-5.90); White Blood Cell 15.5 10^3/uL (4.4-10.8)
[2020-06-09 05:21] LABS: Albumin 1.3 g/dL (3.4-5.0); Potassium 3.5 mmol/L (3.5-5.1)
[2020-06-09 05:24] LABS: BUN/Creatinine Ratio 31.1
[2020-06-09 05:26] LABS: Total Protein 4.7 g/dL (6.4-8.2)
[2020-06-09 05:27] LABS: INR 2.11 (0.9-1.15)
[2020-06-09] MEDS: MEROPENEM 500MG IVPB 50 ML IV SCH ×2 (06:23→18:00)
[2020-06-09] MEDS: HYDROCORTISONE SOD SUCC 100 MG/2ML INJ VIAL IV SCH ×2 (06:24→13:33)
[2020-06-09] MEDS: ACCU-CHEK COMFORT CURVE STRIP VI SCH ×4 (06:24→22:24)
[2020-06-09] MEDS: InsuLIN REG 1unit/0.01ml Soln (100units/ml) SC SCH ×4 (06:24→22:28)
[2020-06-09] MEDS: BUDESONIDE (INHALATION) 0.5 MG/2 ML NEB NEB SCH ×2 (06:33→22:55)
[2020-06-09] MEDS: ALBUTEROL SULF 2.5 MG/0.5ML(0.5%) NEB SOLN NEB PRN ×2 (06:33→22:55)
[2020-06-09] MEDS: DOBUTamine 1000MCG/ML 250 ML IV SCH (06:40)
[2020-06-09 06:55] LABS: Basophils % (manual) 0 (0.0-2.0); Blast Cells 0; Eosinophils % (manual) 0 (0-7); Metamyelocytes % 0; Myelocytes % 0; Reactive Lymphocytes 0; Red Cell Distribution Width 20.3 % (11.8-14.3)
[2020-06-09 08:20] LABS: Band Neutrophils % (manual) 3; Lymphocytes % (manual) 4 (10.0-50.0); Monocytes % (manual) 12 (0-12); Promyelocytes % 1
[2020-06-09] MEDS: ZINC SULFATE 220mg CAP or TAB PO SCH (10:00)
[2020-06-09] MEDS: CHOLECALCIFEROL (VITD3) 2,000 UNIT CAP PO SCH (10:00)
[2020-06-09] MEDS: FAMOTIDINE (10MG/ML) 2ML VL IV SCH (10:00)
[2020-06-09] MEDS: SODIUM CHLOR 0.9% PF (SALINE LOCK) 10ML VIAL/SYR IV SCH ×2 (10:00→22:24)
[2020-06-09] MEDS: DOXYCYCLINE 100MG/250ML 250 ML IV SCH ×2 (10:00→22:24)
[2020-06-09] MEDS: DOPamine 1600MCG/ML D5W 250 ML IV SCH (10:45)
[2020-06-09] MEDS ORDERED: HYDROCORTISONE SOD SUCC 100 MG/2ML INJ VIAL IV SCH (22:00)
[2020-06-09] MEDS: ATORVASTATIN 20 MG TAB PO SCH (22:24)
[2020-06-09] MEDS: NOREPINEPHRINE 8 MG/250ML KIT 250 ML IV SCH (22:30)
[2020-06-10] VITALS (67 sets, daily range): BP systolic 0–156; BP diastolic 0–60
[2020-06-10] MEDS: MIDAZOLAM DRIP 50 mg/50mL 50 ML IV SCH (00:30)
[2020-06-10] MEDS: ACCU-CHEK COMFORT CURVE STRIP VI SCH ×2 (05:59→11:30)
[2020-06-10] MEDS: MEROPENEM 500MG IVPB 50 ML IV SCH (05:59)
[2020-06-10] MEDS: InsuLIN REG 1unit/0.01ml Soln (100units/ml) SC SCH ×2 (06:03→11:30)
[2020-06-10 06:08] LABS: Hematocrit 22.7 % (41.0-53.0); Hemoglobin 7.7 g/dL (13.5-17.5); White Blood Cell 14.6 10^3/uL (4.4-10.8)
[2020-06-10] MEDS: PROPOFOL 100 ML IV SCH (06:08)
[2020-06-10 06:11] LABS: Mean Corpuscular Hemoglobin 28.1 pg (28.0-32.0); Mean Corpuscular Hgb Conc. 33.9 g/dL (32.0-36.0); Mean Corpuscular Volume 83.1 fL (80.0-100.0); Platelet Count (auto) 82 10^3/uL (140-450); Red Blood Cells 2.73 10^6/uL (4.5-5.90)
[2020-06-10 06:14] LABS: Red Cell Distribution Width 20.5 % (11.8-14.3)
[2020-06-10 06:16] LABS: Basophils % (manual) 0 (0.0-2.0); Blast Cells 0; Eosinophils % (manual) 0 (0-7); Metamyelocytes % 0; Promyelocytes % 0; Reactive Lymphocytes 0
[2020-06-10 06:27] LABS: Potassium 3.5 mmol/L (3.5-5.1)
[2020-06-10 07:02] LABS: BUN/Creatinine Ratio 34.5
[2020-06-10] MEDS: BUDESONIDE (INHALATION) 0.5 MG/2 ML NEB NEB SCH (07:36)
[2020-06-10 07:44] LABS: Band Neutrophils % (manual) 2; Lymphocytes % (manual) 1 (10.0-50.0); Monocytes % (manual) 5 (0-12); Myelocytes % 1
[2020-06-10] MEDS: DOBUTamine 1000MCG/ML 250 ML IV SCH (08:00)
[2020-06-10] MEDS: ALBUTEROL SULF 2.5 MG/0.5ML(0.5%) NEB SOLN NEB PRN (08:19)
[2020-06-10] MEDS: SODIUM CHLOR 0.9% PF (SALINE LOCK) 10ML VIAL/SYR IV SCH (10:00)
[2020-06-10] MEDS: CHOLECALCIFEROL (VITD3) 2,000 UNIT CAP PO SCH (10:00)
[2020-06-10] MEDS: FAMOTIDINE (10MG/ML) 2ML VL IV SCH (10:00)
[2020-06-10] MEDS: DOXYCYCLINE 100MG/250ML 250 ML IV SCH (10:00)
[2020-06-10] MEDS: ASCORBIC ACID 1,000 MG TAB PO SCH (10:00)
[2020-06-10] MEDS: ZINC SULFATE 220mg CAP or TAB PO SCH (10:00)
[2020-06-10] MEDS: DOPamine 1600MCG/ML D5W 250 ML IV SCH (10:45)
[2020-06-10] MEDS ORDERED: Glucerna 1.2 Cal 1Liter BOTTLE GT SCH (15:15)
[2020-06-10] MEDS ORDERED: IRON SUCROSE COMPLEX 200 MG in SODIUM CHL 0.9% 100 ML IV SCH (15:15)
[2020-06-10] MEDS ORDERED: HYOSCYAMINE SULF 0.125 MG ODT TAB PO PRN ×2 (16:00)
[2020-06-10] MEDS ORDERED: MORPHINE SULFATE 4 MG/ML SYR/VIAL IV PRN ×2 (16:00)
[2020-06-10] MEDS ORDERED: LORazepam 2MG/ML-1ML VIAL IV PRN ×2 (16:00)
[2020-06-10] MEDS ORDERED: METOCLOPRAMIDE HCL 5MG/ml INJ 2ml VIAL IV SCH (22:00)
[2020-06-10] MEDS ORDERED: HYDROCORTISONE SOD SUCC 100 MG/2ML INJ VIAL IV SCH (22:00)
[2020-06-10] MEDS ORDERED: SODIUM CHLOR 0.9% PF (SALINE LOCK) 10ML VIAL/SYR IV SCH (22:00)
[2020-06-11] MEDS ORDERED: SODIUM FERR GLUC 125 MG in NS 100 ML IV SCH (16:00)
== END 2020-06-10 21:15 | DRG 208 ==
LOC: EDBD 19:14 → ER 19:19 → TELE 19:20 → TELE-WESTW 05-30 22:40 → ICU WEST 06-06 21:02
PROVIDERS: ADMIT Nurse Practitioner Acute Care; ATTEND Internal Medicine
PROC: XW033E5 Introduction of Remdesivir Anti-infective into Peripheral Vein, Percutaneous Approach, New Technology Group 5 (ICD-10-PCS; 2020-06-01)
PROC: 0BH17EZ Insertion of Endotracheal Airway into Trachea, Via Natural or Artificial Opening (ICD-10-PCS; 2020-06-06)
PROC: 5A1935Z Respiratory Ventilation, Less than 24 Consecutive Hours (ICD-10-PCS; 2020-06-06)
PROC: 5A1945Z Respiratory Ventilation, 24-96 Consecutive Hours (ICD-10-PCS; principal; 2020-06-07)
PROC: 5A12012 Performance of Cardiac Output, Single, Manual (ICD-10-PCS; 2020-06-07)
PROC: 02HV33Z Insertion of Infusion Device into Superior Vena Cava, Percutaneous Approach (ICD-10-PCS; 2020-06-10)
PROC: 0D9670Z Drainage of Stomach with Drainage Device, Via Natural or Artificial Opening (ICD-10-PCS; 2020-06-10)
DX: U07.1 COVID-19 (principal); J12.82 Pneumonia due to coronavirus disease 2019; J96.21 Acute and chronic respiratory failure with hypoxia; N17.0 Acute kidney failure with tubular necrosis; I50.23 Acute on chronic systolic (congestive) heart failure; I63.9 Cerebral infarction, unspecified; I21.4 Non-ST elevation (NSTEMI) myocardial infarction; I13.0 Hypertensive heart and chronic kidney disease with heart failure and stage 1 through stage 4 chronic kidney disease, or unspecified chronic kidney disease; J44.1 Chronic obstructive pulmonary disease with (acute) exacerbation; M86.9 Osteomyelitis, unspecified; D68.69 Other thrombophilia; C34.90 Malignant neoplasm of unspecified part of unspecified bronchus or lung; L03.115 Cellulitis of right lower limb; N18.30 Chronic kidney disease, stage 3 unspecified; E11.22 Type 2 diabetes mellitus with diabetic chronic kidney disease; E11.621 Type 2 diabetes mellitus with foot ulcer; E78.5 Hyperlipidemia, unspecified; E87.6 Hypokalemia; R29.6 Repeated falls; Z68.30 Body mass index [BMI] 30.0-30.9, adult; D69.6 Thrombocytopenia, unspecified; E11.51 Type 2 diabetes mellitus with diabetic peripheral angiopathy without gangrene; I48.91 Unspecified atrial fibrillation; F03.90 Unspecified dementia, unspecified severity, without behavioral disturbance, psychotic disturbance, mood disturbance, and anxiety; E11.649 Type 2 diabetes mellitus with hypoglycemia without coma; E66.9 Obesity, unspecified; F41.9 Anxiety disorder, unspecified; I25.10 Atherosclerotic heart disease of native coronary artery without angina pectoris; Z79.899 Other long term (current) drug therapy; Z79.01 Long term (current) use of anticoagulants; Z95.1 Presence of aortocoronary bypass graft; Z90.49 Acquired absence of other specified parts of digestive tract; Z79.84 Long term (current) use of oral hypoglycemic drugs; Z86.73 Personal history of transient ischemic attack (TIA), and cerebral infarction without residual deficits; I25.2 Old myocardial infarction
CPT/HCPCS: 36415; 36569; 36600; 70450; 71045; 73630; 73701; 80048; 80053; 80202; 82570; 82728; 82805; 82962; 83036; 83605; 83615; 83735; 83880; 84156; 84300; 84484; 85007; 85025; 85027; 85379; 85610; 85730; 86141; 87040; 87070; 87077; 87186; 87205; 87426; 93005; 93306; 93926; 93971; 94002; 94003; 94640; 96365; 96367; 96368; 96372; 96375; 99291; G0378; J0330; J0696; J1100; J1815; J2185; J2543; J2704; J3480; J3490